=== PATIENT | female | born 1960 | race Caucasian/White ===

== ENCOUNTER 2020-02-17 18:51 | Emergency (ER) | payer OTHER, SELFPAY ==
[2020-02-17 19:00] VITALS: BP 164/77; PULSE 99; RESP 18; TEMP 36.5; O2SAT 99
--- NOTE | 2020-02-17 19:14 | ED.EAR ---
HPI - Ear Problem General Chief complaint: Ear Stated complaint: left ear poss bug bite Time Seen by Provider: 02/17/20 19:10 Source: patient and RN notes reviewed Mode of arrival: ambulatory Limitations: no limitations History of Present Illness HPI Narrative: 59-year-old female presents with concern for possible foreign body in her left ear. Reports prior to arrival a bug flew in her ear. Reports she remove the bug, was not sure if she called a bug. Reports ear discomfort and occasional ringing in the ear. MD Complaint: foreign body Related Data Home Medications Medication Instructions Recorded Confirmed No Home Medications 02/17/20 02/17/20 Allergies Allergy/AdvReac Type Severity Reaction Status Date / Time No Known Allergies Allergy Unknown Verified 02/17/20 19:07 Review of Systems Review of Systems: Narrative: CONSTITUTIONAL: Denies malaise, chills, sweats, or fever. ENT: Denies rhinorrhea, congestion, sinus pain, or sore throat. Reports ringing in the left ear, ear discomfort CARDIOVASCULAR: Denies chest pain, palpitations, or edema. All systems reviewed & are unremarkable except as noted in HPI and below PMFSH Comments At time of signature, agree with nursing past medical, surgical, social and family history. There is no relevant family history pertinent to the presenting complaint Exam Narrative: Exam Narrative: GENERAL: Well-appearing, well-nourished, and in no acute distress. HEAD: Normocephalic, atraumatic. EYES: PERRLA, conjunctivae clear, and EOMI. No nystagmus. ENT: Nares clear. Mucous membranes moist. Right TM pearly talley with sharp light reflex, left TM not visible due to excess cerumen, no foreign body visible; no tragal tenderness. NECK: Supple. CHEST: No respiratory distress. Clear to auscultation. No bony deformities, no asymmetry. Speaks in full sentences. HEART: Regular rate and rhythm. No murmur heard. Normal peripheral pulses. SKIN: Warm, dry, no rash. NEURO: Alert and oriented x3. PSYCH: Normal mood and affect Course Course Emergency Course: Patient is aware of diagnosis, understands and agrees to treatment plan. Anticipatory guidance given. Patient agrees to follow-up as directed and is aware of reasons to seek care at the emergency department. Portions of this record may have been created with voice recognition software Vital Signs Vital signs: Vital Signs Temperature 97.7 F 02/17/20 19:00 Pulse Rate 99 02/17/20 19:00 Respiratory Rate 18 02/17/20 19:00 Blood Pressure 164/77 H 02/17/20 19:00 Pulse Oximetry 99 02/17/20 19:00 Temperature 97.7 F 02/17/20 19:00 Pulse Rate 99 02/17/20 19:00 Respiratory Rate 18 02/17/20 19:00 Blood Pressure 164/77 H 02/17/20 19:00 Pulse Oximetry 99 02/17/20 19:00 Reviewed. Patient has been instructed to follow up with her primary care provider within the next week regarding her elevated blood pressure today. Procedures Ear Wax Removal Left Ear: Ear Wax Removal Date: 02/17/20 Ear Wax Removal Time: 19:16 Results: Re-examined: some cerumen remains TM Examination: TM(s) intact, normal appearance Ear Canal Exam: atraumatic Patient Tolerated Procedure: well and no complications Additional Comments: No foreign body noted, auditory canal unremarkable, atraumatic Medical Decision Making MDM Narrative Medical decision making narrative: Exam findings show no acute concerns or changes; patient is non-toxic appearing and is in no distress. Patient is appropriate for outpatient treatment and follow-up. Vital Signs Vital Signs: Vital Signs Temperature 97.7 F 02/17/20 19:00 Pulse Rate 99 02/17/20 19:00 Respiratory Rate 18 02/17/20 19:00 Blood Pressure 164/77 H 02/17/20 19:00 Pulse Oximetry 99 02/17/20 19:00 Temperature 97.7 F 02/17/20 19:00 Pulse Rate 99 02/17/20 19:00 Respiratory Rate 18 02/17/20 19:00 Blood Pressure 164/77 H 02/17/20 19:00
== END 2020-02-17 19:30 | disposition home or self-care (01) ==
PROVIDERS: Emergency Provider Nurse Practitioner; PCP Family Medicine
DX: T16.2XXA Foreign body in left ear, initial encounter (principal)
CPT/HCPCS: 99212; G0463

== ENCOUNTER 2022-03-03 08:28 | Emergency (ER) | payer OTHER, SELFPAY ==
[2022-03-03 08:32] VITALS: BP 158/72; PULSE 98; RESP 16; TEMP 36.1; O2SAT 100
--- NOTE | 2022-03-03 08:52 | ED.SKABFB ---
HPI - Skin/Abscess/Foreign Bdy General Chief complaint: Skin/Abscess/Foreign Body Stated complaint: Bee Sting Time Seen by Provider: 03/03/22 08:53 Source: patient and RN notes reviewed Mode of arrival: ambulatory Limitations: no limitations History of Present Illness HPI narrative: 61-year-old female presents to the [facility] with complaints of a bee sting that happened on Sunday, 3 days ago. Patient states that she went to open a gate and was stung between the second and third finger left hand. Swelling noted. Has taken Benadryl 1 time last night. Used baking soda at the time it occurred. Related Data Allergies Allergy/AdvReac Type Severity Reaction Status Date / Time No Known Allergies Allergy Unknown Verified 02/17/20 19:07 Review of Systems Review of Systems: All systems reviewed & are unremarkable except as noted in HPI and below Constitutional: Constitutional: Reports no additional constitutional complaints, Denies chills and Denies fever(s) Eyes: Eyes: Reports no additional eye complaints ENT: Reports system reviewed and no additional complaints, except as documented Cardiovascular: Cardiovascular: Reports no additional cardiovascular complaints Respiratory: Respiratory: Reports no additional respiratory complaints Gastrointestinal: Gastrointestinal: Reports no additional gastrointestinal complaints Musculoskeletal: Musculoskeletal: Reports no additional musculoskeletal complaints Integumentary/Breasts: Skin/Breast: Reports system reviewed and no additional complaints, except as docu Comments: Bee sting between second and third finger left hand Neurologic: Reports system reviewed and no additional complaints, except as documented Psychiatric: Psychiatric: Reports no additional psychiatric complaints Allergic/Immunologic: Allergic/Immunologic: Reports no additional allergic/immunologic complaints PMFSH Past Medical History Medical History No significant medical problems Surgical History Surgical History (Updated 03/03/22 @ 14:41 by Trena Morales APRN) No history of previous surgery Social History Social History (Updated 03/03/22 @ 14:41 by Trena Morales APRN) Gender identity (if verbalized by the patient): Female Comments At the time of my signature, I reviewed and agree with the nursing past medical, surgical, social, and family history. There is no relevant family history pertinent to the patient complaint. Exam Const: General: healthy appearing, no acute distress and alert Nutritional Appearance: well nourished Orientation/consciousness: patient oriented x3 Limitations: no limitations HENMT: Head: normal to inspection Ears: external ears normal General nose exam: Normal external nose present Face and sinus: normal facial exam Mouth: Yes Normal oral and palatal mucosa present, Yes lip normal and Yes moist mucous membranes Throat: posterior oropharynx normal and uvula midline Eyes: General: appearance normal, both eyes and all related structures Conjunctivae: conjunctivae normal Pupils: Equal, round and reactive pupils present Neck: Neck: normal visual inspection, no lymphadenopathy and no meningeal signs Chest: Chest palpation & inspection: normal inspection of the chest Resp: Effort & Inspection: normal respiratory effort and no use of accessory muscles Auscultation: clear to auscultation bilaterally, no crackles, no rales, no rhonchi and no wheezes Cardio: Rate: regular rate Rhythm: regular rhythm GI: GI Palp: Yes Soft to palpation and No Tenderness to palpation present (GI) Back/Spine/Pelvis: Cervical Spine: normal cervical lordosis Thoracic/Lumbar Spine: thoracic and lumbar spine normal to inspection Skin: General skin exam: normal color Rashes: no rashes Wounds: no wounds Other: Redness and inflammation without increased warmth between fingers 2 and 3 left hand. Area is blanchable. Capillary refill
== END 2022-03-03 09:08 | disposition home or self-care (01) ==
PROVIDERS: Emergency Provider Nurse Practitioner; PCP Family Medicine
DX: T63.441A Toxic effect of venom of bees, accidental (unintentional), initial encounter (principal)
CPT/HCPCS: 99213; G0463

== ENCOUNTER 2022-10-20 12:37 | Outpatient (CLI) | payer OTHER, SELFPAY ==
--- NOTE | ~2022-10-20 | US_ITS ---
EXAMINATION: US biopsy lymph node DATE: 10/20/2022 13:24 INDICATION: Cervical lymphadenopathy. TECHNIQUE: The procedure including the risks, benefits, and alternatives was discussed with the patie nt. Risks discussed included bleeding and infection. The patient understood the risks and agreed to p roceed. The skin overlying the left neck was prepped and draped in usual sterile fashion. Anesthetic was administered with 1% lidocaine subcutaneously. An 18 gauge core biopsy needle was then used to obtain 6 core biopsy specimens under continuous sonographic guidance. The entry site was cleaned and dressed. There were no immediate complications. COMPARISON: neck CT 08/15/22 FINDINGS: Ultrasound images demonstrate the needle in a 1.9 x 1.1 cm left supraclavicular lymph node. The previously seen mildly enlarged lymph node in right neck is now normal in size. IMPRESSION: 1. Ultrasound-guided core needle biopsy of a mildly enlarged left supraclavicular lymph node. Reviewed, dictated and finalized at location A. IMPRESSION: 1. Ultrasound-guided core needle biopsy of a mildly enlarged left supraclavicul ar lymph node.
== END 2022-10-20 12:38 | disposition home or self-care (01) ==
PROVIDERS: PCP Family Medicine; Visit Provider Otolaryngology
DX: C82.81 Other types of follicular lymphoma, lymph nodes of head, face, and neck (principal)
CPT/HCPCS: 38505; 76942; 88305; 88341; 88342

== ENCOUNTER 2022-11-08 01:56 | Day surgery (SDC) | payer OTHER, SELFPAY ==
[2022-11-07 13:05] VITALS: BMI 22.6
--- NOTE | ~2022-11-08 | BM_ITS ---
EXAMINATION: CCL bone marrow asp w bx diag DATE: 11/08/2022 09:31 INDICATION: Follicular lymphoma. TECHNIQUE: A time-out was performed to verify the patient's name, date of , and procedure to b e performed. The procedure including the risks, benefits, and alternatives was discussed with the pat ient. Risks discussed included bleeding and infection. The patient understood the risks and agreed to proceed. The skin overlying the left ilium was prepped and draped in usual sterile fashion. Anesth etic was administered with 1% lidocaine subcutaneously. Moderate sedation was achieved with 1 mg Vers ed IV and 50 mcg fentanyl IV. An 11 gauge needle was inserted into the ilium with fluoroscopic maikol nce. Bone marrow was aspirated. An 8 gauge needle was then inserted into the ilium with fluoroscopic guidance. A core bone marrow biopsy was obtained. There were no immediate complications. Fluoroscopy exposure time was 0.0 minutes. The total number of images was 22. FINDINGS: Real-time fluoroscopy demonstrates a marker overlying the left posterior superior iliac spi ne. IMPRESSION: 1. Fluoro-guided bone marrow aspiration. 2. Fluoro-guided bone marrow core biopsy. Reviewed, dictated and finalized at location A.
[2022-11-08 07:32] VITALS: BP 160/88; PULSE 109; RESP 19; TEMP 36.4; O2SAT 99; BMI 22.7
[2022-11-08 07:45] LABS: Basophils Percent Auto 0.6 % (0.2-1.2); Eosinophils Absolute Auto 0.1 K/mm3 (0-0.3); Eosinophils Percent Auto 1.5 % (0-4.4); Hematocrit 40.2 % (37.0-47.0); Hemoglobin 12.8 g/dL (12.0-15.0); Immature Granulocyte Absolute 0.05 K/mm3 (0.00-0.031); Immature Granulocyte Percent A 0.7 % (0-0.5); Lymphocytes Absolute Auto 1.38 K/mm3 (0.9-3.2); Lymphocytes Percent Auto 20.2 % (18.3-44.2); Mean Corpuscular HGB Conc 31.8 g/dl (32-36); Mean Corpuscular Hemoglobin 26.7 pg (26-34); Mean Corpuscular Volume 83.9 fl (80-100); Mean Platelet Volume 10.1 fl (7.4-10.4); Monocytes Absolute Auto 0.5 K/mm3 (0.1-0.6); Monocytes Percent Auto 7.2 % (2.6-8.5); Neutrophils Absolute Auto 4.8 K/mm3 (1.3-6.7); Neutrophils Percent Auto 69.8 % (45.5-73.1); Platelet Count Result 320 k/mm3 (150-375); Red Blood Count 4.79 M/mm3 (4.2-5.4); White Blood Count 6.8 K/mm3 (4.5-10.0)
[2022-11-08 07:57] LABS: INR 0.8; Prothrombin Time 11.9 Seconds (11.1-14.7)
--- NOTE | 2022-11-08 08:52 | WPDMODSED ---
Moderate Sedation Note-Pt Data Patient Data Diagnosis: Grade 1 follicular lymphoma. Present Complaint: Grade 1 follicular lymphoma. Procedure to be performed/Plan: Fluoro-guided bone marrow biopsy of left ilium. Allergies Allergy/AdvReac Type Severity Reaction Status Date / Time Penicillins Allergy Mild Rash Verified 11/08/22 07:30 Home Medications Medication Instructions Recorded Confirmed Type elderberry fruit 350 mg capsule 350 mg PO DAILY 10/03/22 11/08/22 History multivit with 1 tablet PO DAILY 10/03/22 11/08/22 History jrwyvool-hrbk-WZ-lutein 8 mg iron-400 mcg-300 mcg tablet (Centrum Silver Women) Sedation/Anesthesia: No previous sedation/anesthesia problems (including family history). [facility] Past Medical History Medical History No significant medical problems Surgical History Surgical History No history of previous surgery Family History Family History Father Asthma Cancer Hypertension Heart disease Mother Hypertension Sibling Hypertension Social History Social History Smoking status: Never smoker Second hand tobacco smoke exposure: No Alcohol intake: never Substance use: never Substance use type: does not use Lack of Transportation: No Lack of Food: Never True Current Housing: I Have Housing Concerned About Future Housing: No Difficulty Paying Gas/Electric Bills: No Difficulty Paying for Meds: No Currently Unemployed: No Education: High School Diploma/GED Difficulty w/ Childcare or Family Care: No Living arrangements: with family Gender identity (if verbalized by the patient): Female Spiritual care concerns: No Mod Sed Physical Exam Physical Exam Pre Procedural Exam: Normal: Appearance, Lungs, Heart Rate, Heart Rhythm and Abdomen Hours since solid foods: 12 Hours since liquid intake: 12 Mallampati Classification: class II Internal Medicine - PN: Obj Da Vital Signs Vital Signs: Vital Signs - 24 hr 11/08/22 07:32 Temperature 36.4 C Pulse Rate 109 H Respiratory Rate 19 Blood Pressure 160/88 H Pulse Oximetry 99 Oxygen Delivery Room Air Labs 05/03/23 07:28 Labs: Laboratory Results - last 24 hr 11/08/22 07:28 WBC 6.8 RBC 4.79 Hgb 12.8 Hct 40.2 MCV 83.9 MCH 26.7 MCHC 31.8 L RDW 15.0 H Plt Count 320 MPV 10.1 Immature Gran % (Auto) 0.7 H Neut % (Auto) 69.8 Lymph % (Auto) 20.2 [place] % (Auto) 7.2 Eos % (Auto) 1.5 Baso % (Auto) 0.6 Lymph # (Auto) 1.38 [place] # (Auto) 0.5 Eos # (Auto) 0.1 Baso # (Auto) 0.0 Abs Immat Gran (auto) 0.05 H Absolute Neuts (auto) 4.8 Absolute Nucleated RBC 0.0 Nucleated RBC % 0.0 PT 11.9 INR 0.8 ASA Classification/Sedation ASA Classification/Sedation ASA Class: II Emergent: No Risks: Risks, benefits and alternatives explained and patient/family accepted plan for sedation. Patient re-evaluated immediately prior to sedation.
[2022-11-08 09:30] VITALS: BP 157/75; PULSE 95; RESP 14; O2SAT 99
[2022-11-08 09:48] VITALS: BP 139/73; PULSE 92; RESP 14; O2SAT 99
[2022-11-08 10:00] VITALS: BP 134/76; PULSE 97; RESP 16; O2SAT 100
[2022-11-08 10:15] VITALS: BP 134/76; PULSE 89; RESP 16; O2SAT 100
== END 2022-11-08 10:30 | disposition home or self-care (01) ==
PROVIDERS: PCP Family Medicine; Referring Provider Internal Medicine Hematology & Oncology; Visit Provider Radiology Diagnostic Radiology
DX: C82.00 Follicular lymphoma grade I, unspecified site (principal)
CPT/HCPCS: 36415; 38222; 85025; 85610; 88184; 88185; 88305; 88311; 88313; 88341; 88342; J1642; J2250; J3010; J7040

== ENCOUNTER 2022-11-14 08:53 | Outpatient (CLI) | payer OTHER, SELFPAY ==
--- NOTE | ~2022-11-14 | PE_ITS ---
EXAMINATION: PET skull to mid thigh DATE: 11/14/2022 10:55 INDICATION: Right-sided 1 follicular lymphoma TECHNIQUE: Blood glucose level was 150 mg/dL. 11.74 mCi of 18-fluorodeoxyglucose (18-FDG) was adminis tered i.v. Low dose computed tomography (CT) images were acquired from the base of the brain to the p roximal thighs for attenuation correction and anatomic localization. Positron emission tomography (PE T) images were acquired in the same distribution beginning 72 minutes after injection. Images includi ng fused PET/CT images were reconstructed in axial, coronal, and sagittal planes. Automated exposure control technique was employed. The dose-length product was 481.20mGy-cm. COMPARISON: None FINDINGS: Head/neck: There is symmetric increased activity in the oral cavity, palatine tonsils, parotid glands, submandi bular glands, laryngeal muscles and ocular muscles without CT correlate, likely physiologic. 9 mm lef t submental lymph node with increased FDG uptake with maximal SUV of 3.5. 1.4 x 0.9 cm left supraclav icular lymph node also with mildly increased FDG uptake with maximal SUV of 3.2 and which was recentl y biopsied with pathology consistent with follicular lymphoma, low-grade . Chest: There are bilateral enlarged and FDG avid axillary lymph nodes, the largest on the right measuring 2. 3 x 1.7 cm with maximal SUV of 3.7 and measuring 2.2 x 1.2 cm on the left with maximal SUV of 4.7. No suspicious pulmonary nodules, pneumonia, pulmonary edema or pleural effusion. Calcified mediastinal lymph nodes consistent with old granulomatous disease. No abnormally enlarged or FDG avid mediastinal or hilar lymphadenopathy. Heart size is normal. No pericardial effusion. Abdomen/pelvis/proximal thighs: Physiologic renal accumulation and excretion of FDG activity in the kidneys, bladder and along portio ns of ureters. Normal degree and heterogenous pattern of increased uptake throughout the liver withou t radiologic correlate or dominant FDG avid lesion. A few scattered small hepatic and splenic calcifi cations consistent with old granulomatous disease. Spleen is normal in size with diffuse mild FDG upt amy which remains slightly less than in the liver. The gallbladder, pancreas, spleen and bilateral ad renal glands are normal. Mild to moderate uptake scattered throughout the bowels without radiologic c orrelate, also likely physiologic. Normal appendix. There are multiple additional normal sized with m ildly enlarged FDG avid bilateral inguinal lymph nodes, the largest on the right measuring 1.6 x 1.2 cm with maximal SUV of 5.5. Normal and mildly enlarged FDG avid lymph nodes extend cephalad along the bilateral external and common iliac chains there are couple additional normal sized and mildly FDG a vid inferior left periaortic lymph nodes. For reference a 2.5 x 1.1 cm right external iliac chain lym ph node demonstrates maximal SUV of 7.0. Musculoskeletal: Diffuse mild FDG activity throughout the bone marrow most prominent in the vertebral bodies and pelvi s with some of the most intense uptake at the left posterior iliac spine surrounding a subtle thin bernabe cent tract from the recent bone marrow biopsy performed 6 days prior the pathology of which remains p ending. IMPRESSION: 1. Mild to moderate increased FDG uptake associated with multiple normal-sized to mildly enlarged lym ph nodes at the left face and neck, bilateral axilla and bilateral inguinal regions extending cephala d along the bilateral iliac chains to the inferior left periaortic region consistent with biopsy-prov en follicular lymphoma. 2. Diffuse mild increased bone marrow activity including at the site of a recent bone marrow biopsy t he left posterior iliac spine. Correlate with results from the biopsy which remain pending. Reviewed, dictated and finalized at location A. Electronically signed by Claudio
[2022-11-14 09:14] LABS: Glucose Point of Care 150 mg/dl (65-105)
== END 2022-11-14 08:54 | disposition home or self-care (01) ==
PROVIDERS: PCP Family Medicine; Visit Provider Internal Medicine Hematology & Oncology
DX: C82.01 Follicular lymphoma grade I, lymph nodes of head, face, and neck (principal)
CPT/HCPCS: 78815; A9552

== ENCOUNTER 2022-12-02 12:09 | Emergency (ER) | payer OTHER, SELFPAY ==
[2022-12-02 12:18] VITALS: BP 147/67; PULSE 88; RESP 16; TEMP 36.8; O2SAT 100
--- NOTE | 2022-12-02 12:52 | ED.WOUNDLAC ---
HPI - Wound/Laceration General Chief Complaint: Skin/Abscess/Foreign Body Stated Complaint: Bee Sting/Right Arm History of Present Illness HPI narrative: 62-year-old female presents to the [facility] today complaining a wasp sting to right forearm. Patient stated she was walking into there she had yesterday when a wasp stung her when she walked into it. Since then the patient has had increased redness and swelling to her right forearm. Patient states this is a similar reaction as she has to bee stings and mosquito bites. Patient had it wrapped and using ice to help with the swelling in the soon as she removes the wrapping the swelling returns. Patient denies any fevers, body aches, chills. Patient denies any hives, swelling to throat, difficulty breathing. Related Data Home Medications Medication Instructions Recorded Confirmed elderberry fruit 350 mg capsule 350 mg PO DAILY 10/03/22 12/02/22 multivit with 1 tablet PO DAILY 10/03/22 12/02/22 liesosba-eyja-TZ-lutein 8 mg iron-400 mcg-300 mcg tablet (Centrum Silver Women) Allergies Allergy/AdvReac Type Severity Reaction Status Date / Time Penicillins Allergy Mild Rash Verified 11/08/22 07:30 Review of Systems Review of Systems: CONSTITUTIONAL: Denies fever, chills, or sweats. EYES: Denies visual changes, redness, or discharge. ENT: Denies otalgia and sore throat CARDIOVASCULAR: Denies chest pain, palpitations, or edema. RESPIRATORY: Denies cough or dyspnea. GASTROINTESTINAL: Denies abdominal pain, nausea, vomiting, or diarrhea. GENITOURINARY: Denies dysuria or hematuria. SKIN: Positive for right forearm rash and itching. MUSCULOSKELETAL: Denies back pain, joint pain, or myalgia. NEUROLOGIC: Denies headache, numbness, or weakness. Pertinent positives per HPI. [facility] Past Medical History Medical History No significant medical problems Surgical History Surgical History No history of previous surgery Family History Family History Father Asthma Cancer Hypertension Heart disease Mother Hypertension Sibling Hypertension Social History Social History Smoking status: Never smoker Second hand tobacco smoke exposure: No Alcohol intake: never Substance use: never Substance use type: does not use Lack of Transportation: No Lack of Food: Never True Current Housing: I Have Housing Concerned About Future Housing: No Difficulty Paying Gas/Electric Bills: No Difficulty Paying for Meds: No Currently Unemployed: No Education: High School Diploma/GED Difficulty w/ Childcare or Family Care: No Living arrangements: with family Gender identity (if verbalized by the patient): Female Spiritual care concerns: No Comments At the time of my signature, I reviewed and agree with the nursing past medical, surgical, social, and family history. There is no relevant family history pertinent to the patient complaint. Exam Narrative: GENERAL: This is a well-nourished, well-developed patient, in no apparent distress. HEAD: normocephalic, atraumatic. EYES: PERRL. Sclera clear/white. Vision is grossly intact. EARS: External ears normal, auditory canals clear and without drainage, TMs normal without perforation. Hearing grossly intact. NOSE: External nose normal with no obvious nasal discharge, nares without redness, no rhinorrhea. THROAT: Mucous membranes moist, posterior pharynx clear. NECK: Neck supple, non-tender without lymphadenopathy, masses or thyromegaly. CARDIOVASCULAR: Regular rate and rhythm without murmurs, gallops, or rubs. RESPIRATORY: Clear to auscultation. Breath sounds equal bilaterally. No wheezes, rales, or rhonchi. GASTROINTESTINAL: Abdomen soft, non-tender, nondistended. Bowel sounds are act
== END 2022-12-02 13:00 | disposition home or self-care (01) ==
PROVIDERS: Emergency Provider Nurse Practitioner Family; PCP Family Medicine
DX: T63.461A Toxic effect of venom of wasps, accidental (unintentional), initial encounter (principal)
CPT/HCPCS: 99213; G0463

== ENCOUNTER 2023-03-15 08:56 | Outpatient (CLI) | payer OTHER, SELFPAY ==
--- NOTE | ~2023-03-15 | CT_ITS ---
EXAMINATION: CT chest abdomen pelvis w con DATE: 03/15/2023 09:24 INDICATION: Follicular lymphoma TECHNIQUE: Transaxial computed tomographic images of the chest, abdomen, and pelvis were obtained aft er the administration of 100 cc of Omnipaque 350 intravenous contrast. The dose-length product (DLP) was 434.26 mGy-cm. Automated exposure control and iterative reconstruction technique were employed. COMPARISON: 11/14/2022 FINDINGS: CHEST CT: The heart size is normal. No pleural effusion or pneumothorax. There are no pathologically enlarged t horacic lymph nodes. A right paratracheal lymph node is upper limits of normal in size. There appears to be mild smooth interlobular septal thickening of the lungs and mild atelectasis although sensitiv ity is limited by respiratory motion. ABDOMEN/PELVIS CT: Punctate calcifications in the liver and spleen likely represent healed granulomatous disease. The li ying is diffusely low in attenuation when compared with the spleen, consistent with hepatic steatosis. The pancreas, gallbladder, and adrenal glands are normal. The kidneys are unremarkable. No pathologi ne enlarged abdominal or pelvic lymph nodes are identified. There is a focally dilated segment of small bowel in the anterior pelvis, with small bowel feces sign, which continues to the level of a sh ort segment of stricture and wall thickening of the small bowel (axial image 172, coronal image 27). IMPRESSION: 1. Interval resolution of thoracic and pelvic lymphadenopathy. 2. Focally dilated segment of small bowel in the pelvis continuing to a short segment of stricture an d wall thickening of the small bowel which could reflect benign or malignant stricture. Reviewed, dictated and finalized at location L. IMPRESSION: 1. Interval resolution of thoracic and pelvic lymphadenopathy. 2. Focally dilated segment of small bowel in the pelvis continuing to a short s egment of stricture and wall thickening of the small bowel which could reflect benign or malignant stricture.
[2023-03-15 09:20] LABS: Estimated Glomerular Filt Rate > 60
[2023-03-15 10:21] LABS: Basophils Absolute Auto 0.1 K/mm3 (0.0-0.1); Eosinophils Absolute Auto 0.2 K/mm3 (0-0.3); Hematocrit 25.4 % (37.0-47.0); Hemoglobin 7.2 g/dL (12.0-15.0); Immature Granulocyte Absolute 0.05 K/mm3 (0.00-0.031); Immature Granulocyte Percent A 0.8 % (0-0.5); Lymphocytes Absolute Auto 1.06 K/mm3 (0.9-3.2); Lymphocytes Percent Auto 17.4 % (18.3-44.2); Mean Corpuscular HGB Conc 28.3 g/dl (32-36); Mean Corpuscular Hemoglobin 22.9 pg (26-34); Mean Corpuscular Volume 80.9 fl (80-100); Mean Platelet Volume 9.6 fl (7.4-10.4); Monocytes Absolute Auto 0.4 K/mm3 (0.1-0.6); Monocytes Percent Auto 6.9 % (2.6-8.5); Neutrophils Absolute Auto 4.3 K/mm3 (1.3-6.7); Neutrophils Percent Auto 70.9 % (45.5-73.1); Platelet Count Result 536 k/mm3 (150-375); Red Blood Count 3.14 M/mm3 (4.2-5.4); Red Cell Distribution Width 17.3 % (11.5-14.5); White Blood Count 6.1 K/mm3 (4.5-10.0)
[2023-03-15 10:35] LABS: Anisocytosis 1+ (NORMAL); Hypochromasia 1+ (NORMAL); Platelet Estimate Increased (Adequate)
[2023-03-15 10:37] LABS: Ovalocytes 1+ (NORMAL)
[2023-03-15 10:40] LABS: Alanine Aminotransferase 20 U/L (6-35); Alkaline Phosphatase 88 U/L (38-126); Anion Gap 11 mmol/L (8-16); Aspartate Amino Transferase 27 U/L (14-36); Bilirubin,Total 0.3 mg/dL (0.2-1.3); Blood Urea Nitrogen 12 mg/dL (7-17); Calcium 8.6 mg/dL (8.4-10.2); Carbon Dioxide 22 mmol/L (22-30); Chloride 104 mmol/L (98-107); Estimated Glomerular Filt Rate > 60; Glucose 158 mg/dL (65-110); Lactate Dehydrogenase 214 U/L (120-246); Potassium 4.4 mmol/L (3.4-5.0); Sodium 137 mmol/L (137-145)
[2023-03-15 10:42] LABS: Schistocytes None Seen (NORMAL)
== END 2023-03-15 08:57 | disposition home or self-care (01) ==
PROVIDERS: PCP Family Medicine; Visit Provider Internal Medicine Hematology & Oncology
DX: C82.01 Follicular lymphoma grade I, lymph nodes of head, face, and neck (principal)
CPT/HCPCS: 71260; 74177; 80053; 83615; 85025; Q9967

== ENCOUNTER 2023-03-26 10:48 | Outpatient (CLI) | payer OTHER, SELFPAY ==
[2023-03-26 11:12] LABS: Basophils Absolute Auto 0.1 K/mm3 (0.0-0.1); Basophils Percent Auto 0.8 % (0.2-1.2); Eosinophils Absolute Auto 0.2 K/mm3 (0-0.3); Hematocrit 27.4 % (37.0-47.0); Hemoglobin 7.8 g/dL (12.0-15.0); Immature Granulocyte Absolute 0.03 K/mm3 (0.00-0.031); Immature Granulocyte Percent A 0.4 % (0-0.5); Lymphocytes Absolute Auto 1.44 K/mm3 (0.9-3.2); Lymphocytes Percent Auto 18.9 % (18.3-44.2); Mean Corpuscular HGB Conc 28.5 g/dl (32-36); Mean Corpuscular Hemoglobin 21.9 pg (26-34); Monocytes Absolute Auto 0.5 K/mm3 (0.1-0.6); Monocytes Percent Auto 6.8 % (2.6-8.5); Neutrophils Absolute Auto 5.4 K/mm3 (1.3-6.7); Neutrophils Percent Auto 71.1 % (45.5-73.1); Platelet Count Result 603 k/mm3 (150-375); Red Blood Count 3.56 M/mm3 (4.2-5.4); Red Cell Distribution Width 18.6 % (11.5-14.5); White Blood Count 7.6 K/mm3 (4.5-10.0)
[2023-03-26 11:19] LABS: Anisocytosis 1+ (NORMAL); Hypochromasia 1+ (NORMAL); Platelet Estimate Increased (Adequate); Schistocytes None Seen (NORMAL)
[2023-03-26 17:28] LABS: Iron 27 ug/dL (37-170)
[2023-03-26 17:30] LABS: Alanine Aminotransferase 21 U/L (6-35); Albumin Level 4.4 g/dL (3.5-5.1); Alkaline Phosphatase 93 U/L (38-126); Anion Gap 11 mmol/L (8-16); Aspartate Amino Transferase 27 U/L (14-36); Bilirubin,Total 0.3 mg/dL (0.2-1.3); Blood Urea Nitrogen 9 mg/dL (7-17); Calcium 9.2 mg/dL (8.4-10.2); Carbon Dioxide 23 mmol/L (22-30); Chloride 105 mmol/L (98-107); Estimated Glomerular Filt Rate > 60; Glucose 136 mg/dL (65-110); Lactate Dehydrogenase 219 U/L (120-246); Potassium 4.3 mmol/L (3.4-5.0); Sodium 139 mmol/L (137-145)
[2023-03-26 17:55] LABS: Percent Iron Saturation 5 % (20-50)
[2023-03-26 18:04] LABS: Ferritin 4.35 ng/mL (11.1-264)
[2023-03-26 18:36] LABS: Folic Acid 16.6 ng/mL (2.76->20)
== END 2023-03-26 10:49 | disposition home or self-care (01) ==
LOC: ANHLAB 10:50
PROVIDERS: PCP Family Medicine; Visit Provider Internal Medicine Hematology & Oncology
DX: D64.9 Anemia, unspecified (principal); C82.01 Follicular lymphoma grade I, lymph nodes of head, face, and neck
CPT/HCPCS: 36415; 80053; 82607; 82728; 82746; 83540; 83550; 83615; 85025

== ENCOUNTER 2023-06-07 08:25 | Outpatient (CLI) | payer OTHER, SELFPAY ==
--- NOTE | ~2023-06-07 | XR_ITS ---
EXAMINATION: XR small bowel follow through DATE: 06/07/2023 10:06 INDICATION: Abdominal findings on diagnostic imaging. TECHNIQUE: Oral contrast was administered, and a time course of radiographs of the abdomen was obtain ed. Fluoroscopy of the small bowel was performed. Fluoroscopy exposure time was 0.3 minutes. The tota l number of images was 12. COMPARISON: CT 03/15/2023, PET/CT 11/14/2022 FINDINGS: Again seen is dilatation and fold thickening of a loop of small bowel in the inferior abdomen. There is a mild stricture at the distal aspect of this loop. The terminal ileum is normal. Transit time fro m the stomach to proximal colon was approximately 1 hour. IMPRESSION: 1. Mild stricture in small bowel in the inferior abdomen with persistent dilatation and fold thickeni ng of a loop of small bowel proximal to the stricture. These findings are likely secondary to lymphom a. Reviewed, dictated and finalized at location A. 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 Mild stricture in small bowel in the inferior abdomen with persistent dilata tion and fold thickening of a loop of small bowel proximal to the stricture. Th ariela findings are likely secondary to lymphoma.
== END 2023-06-07 08:26 | disposition home or self-care (01) ==
PROVIDERS: PCP Family Medicine; Visit Provider Internal Medicine Gastroenterology
DX: R93.3 Abnormal findings on diagnostic imaging of other parts of digestive tract (principal); D50.9 Iron deficiency anemia, unspecified
CPT/HCPCS: 36415; 74250; 82728; 83540; 83550; 85027

== ENCOUNTER 2023-06-13 02:40 | Day surgery (SDC) | payer OTHER, SELFPAY ==
[2023-05-29 10:56] VITALS: BMI 23.1
--- NOTE | 2023-06-11 10:47 | SUR.PREOP ---
Patient called regarding upcoming procedure. Reviewed preop instructions, appointment times, and procedure prep.
--- NOTE | 2023-06-13 10:36 | P.PNAN_ITS ---
Anes - Initial Pre Proc Eval Procedure: Operation Date: 06/13/23 11:00 Proposed Procedures p Esophagogastroduodenoscopy & Colonoscopy - Caleb Hernandez MD Date/Time: 06/13/23 10:36 Surgeon: Caleb Hernandez MD Pre Op Diagnosis: Iron deficiency anemia unspecified Patient Data Age: 63 Gender: F Height: 1.68 m Weight: 65 kg Allergies Allergy/AdvReac Type Severity Reaction Status Date / Time Penicillins Allergy Mild Rash Verified 06/13/23 10:22 Home Medications Medication Instructions Recorded Confirmed Type elderberry fruit 350 mg capsule 350 mg PO DAILY 10/03/22 05/29/23 History [id number] 8 mg-folic 400 1 tablet PO DAILY 10/03/22 05/29/23 History mcg-K 50 mcg-lutein 300 mcg tablet (Centrum Silver Women) Iron (ferrous sulfate) 65 mg PO BID 04/11/23 06/13/23 History Vitamin C 500 mg PO DAILY 04/11/23 05/29/23 History Patient hx anesthesia problems: none Family hx anesthesia problems: none Results Review: All pre-operative results and documents have been reviewed as part of the pre- operative evaluation. [facility] Past Medical History Medical History (Updated 05/17/23 @ 15:34 by Caleb Hernandez MD) Abnormal CT scan, small bowel Follicular lymphoma No significant medical problems Surgical History Surgical History No history of previous surgery Family History Family History Father Asthma Cancer Hypertension Heart disease Mother Hypertension Sibling Hypertension Social History Social History (Updated 05/17/23 @ 15:22 by Amanda Hernandez CMA) Smoking status: Never smoker Second hand tobacco smoke exposure: No Alcohol intake: current Alcohol use details: social Substance use: never Substance use type: does not use Lack of Transportation: No Lack of Food: Never True Current Housing: I Have Housing Concerned About Future Housing: No Difficulty Paying Gas/Electric Bills: No Difficulty Paying for Meds: No Currently Unemployed: No Education: High School Diploma/GED Difficulty w/ Childcare or Family Care: No Living arrangements: with family Gender identity (if verbalized by the patient): Female Spiritual care concerns: No Anes - Eval Final PreProcedure Day of Procedure 06/13/23 10:36 Patient weight: obese Heart: tachycardia Airway: Mallampati scale class II ASA classification: III Anesthesia type and monitoring: general GIVS and standard monitoring Results Review: All pre-operative results and documents have been reviewed as part of the pre- operative evaluation. Informed Consent: The patient's anesthetic plan and its attendant risks and benefits were discussed with the patient/family/POA. Questions were solicited and answers provided to the satisfaction of the patient/family/POA.
[2023-06-13] MEDS: LACTATED RINGERS 1,000 ML 150 ML IV CONT (10:37)
[2023-06-13 10:38] VITALS: BP 162/91; PULSE 115; RESP 20; TEMP 36.2; O2SAT 100; BMI 22.4
--- NOTE | 2023-06-13 10:53 | WPDHPUPDATE1 ---
History and Physical Update Update Date/Time: 06/13/23 10:53 History and Physical has been reviewed, including an updated exam of the patient. There are NO changes in the patient's condition. Risks, benefits, and alternatives have been discussed and questions answered. Patient agrees to proceed with procedure.
[2023-06-13 11:21] VITALS: BP 106/69; PULSE 111; RESP 18; O2SAT 98
[2023-06-13 11:31] VITALS: BP 125/89; PULSE 118; RESP 18; O2SAT 98
[2023-06-13 11:41] VITALS: BP 129/94; PULSE 107; RESP 21; O2SAT 100
== END 2023-06-13 11:56 | disposition home or self-care (01) ==
PROVIDERS: PCP Family Medicine; Visit Provider Internal Medicine Gastroenterology
PROC: 0DJ08ZZ Inspection of Upper Intestinal Tract, Via Natural or Artificial Opening Endoscopic (ICD-10-PCS; CPT 43235; principal; 2023-06-13 11:00)
DX: K64.8 Other hemorrhoids (principal); K21.00 Gastro-esophageal reflux disease with esophagitis, without bleeding; K29.80 Duodenitis without bleeding; K31.89 Other diseases of stomach and duodenum; D50.9 Iron deficiency anemia, unspecified; C82.05 Follicular lymphoma grade I, 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
CPT/HCPCS: 45378; 43239; 88305; J2704; J7120

== ENCOUNTER 2024-05-24 09:47 | Emergency (ER) | payer OTHER, SELFPAY ==
[2024-05-24 09:57] VITALS: BP 163/65; PULSE 91; RESP 16; TEMP 36.8; O2SAT 100
--- NOTE | 2024-05-24 10:38 | ED.GENADULT ---
HPI - General Adult General Chief complaint: Skin/Abscess/Foreign Body Stated complaint: reaction to bug bite on neck Source: patient Mode of arrival: ambulatory Limitations: no limitations History of Present Illness HPI narrative: Patient presents for evaluation of redness and itching to the anterior aspect of the neck. Symptom onset 2 days ago after she was bit by an insect. She has applied some Benadryl cream. She states that the area feels ?tight?. No fever, chills, difficulty breathing or swallowing, drainage from the affected area. Related Data Home Medications Medication Instructions Recorded Confirmed elderberry fruit 350 mg capsule 350 mg PO DAILY 10/03/22 05/29/23 [id number]-yryd-ccgg 8 mg-folic 400 1 tablet PO DAILY 10/03/22 05/29/23 mcg-K 50 mcg-lutein 300 mcg tablet (Centrum Silver Women) Iron (ferrous sulfate) 65 mg PO BID 04/11/23 06/13/23 Vitamin C 500 mg PO DAILY 04/11/23 05/29/23 Allergies Allergy/AdvReac Type Severity Reaction Status Date / Time Penicillins Allergy Mild Rash Verified 06/13/23 10:22 Review of Systems Review of Systems: CONSTITUTIONAL: Denies fever, chills, or sweats. EYES: Denies visual changes, redness, or discharge. ENT: Denies rhinorrhea, congestion, sore throat, or otalgia. CARDIOVASCULAR: Denies chest pain, palpitations, or edema. RESPIRATORY: Denies cough or dyspnea. GASTROINTESTINAL: Denies abdominal pain, nausea, vomiting, or diarrhea. GENITOURINARY: Denies dysuria or hematuria. SKIN: Reports redness and itching to the anterior aspect of the neck. MUSCULOSKELETAL: Denies back pain, joint pain, or myalgia. NEUROLOGIC: Denies headache, numbness, dizziness, or weakness. PSYCHIATRIC: Denies anxiety or depression. [facility] Past Medical History Medical History Abnormal CT scan, small bowel Follicular lymphoma No significant medical problems Surgical History Surgical History No history of previous surgery Family History Family History Father Asthma Cancer Hypertension Heart disease Mother Hypertension Sibling Hypertension Social History Social History Smoking status: Never smoker Second hand tobacco smoke exposure: No Alcohol intake: current Alcohol use details: social Substance use: never Substance use type: does not use Lack of Transportation: No Lack of Food: Never True Current Housing: I Have Housing Concerned About Future Housing: No Difficulty Paying Gas/Electric Bills: No Difficulty Paying for Meds: No Currently Unemployed: No Education: High School Diploma/GED Difficulty w/ Childcare or Family Care: No Living arrangements: with family Gender identity (if verbalized by the patient): Female Spiritual care concerns: No Exam Narrative: GENERAL: Well-appearing, well-nourished, and in no acute distress. HEAD: Normocephalic, atraumatic. EYES: PERRLA and EOMI. ENT: Nares clear, no rhinorrhea or epistaxis. Mucous membranes moist. Oropharynx without tonsillar hypertrophy exudate or other lesions. Bilateral TMs pearly talley nonbulging NECK: Supple. No adenopathy or masses. No carotid bruits or JVD CHEST: Clear to auscultation. No respiratory distress. No wheezes rales or rhonchi HEART: Regular rate and rhythm. No murmur heard. Normal peripheral pulses. ABDOMEN: Soft, nontender, nondistended, normal active bowel sounds. EXTREMITIES: Normal range of motion. No edema. SKIN: There is a 5 x 6 cm area of erythema in an irregular formation to the anterior aspect of the neck. NEURO: No focal deficits. Alert and oriented x3. PSYCH: Normal mood and affect. Course Course Emergency Course: This is a 64-year-old female who presented for evaluation of redness and itching to the anterior aspect of the neck after experiencing an insect bite 2 days ago. Benadryl has not been working topically. Will switch to oral. Add Medrol Dosepak. Will cover for cellulitis with cephalexin. Follow-up with primary provider. Go to the ER for worsening symptoms. Patient is in agreement with plan of care. Level of Care: Express Care Visit Vital Signs Vital signs: Vital Signs Temperature 36.8 C 05/24/24 09:57 Pulse Rate 91 05/24/24 09:57 Respiratory Rate 16 05/24/24 09:57 Blood Pressure 163/65 H 05/24/24 09:57 Pulse Oximetry 100 05/24/24 09:57 Oxygen Delivery Room Air 05/24/24 09:57 Temperature 36.8 C 05/24/24 09:57 Pulse Rate 91 05/24/24 09:57 Respiratory Rate 16 05/24/24 09:57 Blood Pressure 163/65 H 05/24/24 09:57 Pulse Oximetry 100 05/24/24 09:57 Oxygen Delivery Room Air 05/24/24 09:57 Medical Decision Making Vital Signs Vital Signs: Vital Signs Temperature 36.8 C 05/24/24 09:57 Pulse Rate 91 05/24/24 09:57 Respiratory Rate 16 05/24/24 09:57 Blood Pressure 163/65 H 05/24/24 09:57 Pulse Oximetry 100 05/24/24 09:57 Oxygen Delivery Room Air 05/24/24 09:57 Temperature 36.8 C 05/24/24 09:57 Pulse Rate 91 05/24/24 09:57 Respiratory Rate 16 05/24/24 09:57 Blood Pressure 163/65 H 05/24/24 09:57 Pulse Oximetry 100 05/24/24 09:57 Oxygen Delivery Room Air 05/24/24 09:57 Discharge Plan Discharge Clinical Impression: Insect bite Patient Disposition: Home, Self-Care Condition: Stable Instructions: Antibiotic Form, Insect Bite or Sting (ED) Patient Language: Syriac Prescriptions: New cephalexin 500 mg capsule 500 mg PO Q6H Qty: 40 0RF methylprednisolone [Medrol (Gil)] 4 mg tablets,dose pack See Rx Instructions .ROUTE .COMPLEX Qty: 21 0RF Rx Instructions: for 6 days No Action Iron (ferrous sulfate) 65 mg 65 mg PO BID Vitamin C 500 mg 500 mg PO DAILY elderberry fruit 350 mg capsule 350 mg PO DAILY Centrum Silver Women 8 mg iron-400 mcg-300 mcg tablet 1 tablet PO DAILY omeprazole 20 mg capsule,delayed release(DR/EC) 20 mg PO .daily Qty: 30 11RF Follow-up/Referrals: Harms,Bo Mcclain M.D. [Primary Care Provider] - Time of Disposition: 10:04
== END 2024-05-24 10:10 | disposition home or self-care (01) ==
PROVIDERS: Emergency Provider Nurse Practitioner; PCP Family Medicine
DX: S10.96XA Insect bite of unspecified part of neck, initial encounter (principal); W57.XXXA Bitten or stung by nonvenomous insect and other nonvenomous arthropods, initial encounter; Z85.72 Personal history of non-Hodgkin lymphomas
CPT/HCPCS: 99213; G0463

== ENCOUNTER 2024-08-30 10:00 | Emergency (ER) | payer OTHER, SELFPAY ==
--- OUTSIDE RECORDS SUMMARY | 2024-08-30 10:05 | XMS_ITS | Encounter Summary ---
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 Operator Name Role Phone Unavailable Primary Care Provider Unavailabl e Encounter Details Date Type Department Care Team (Late st Contact Info) Description 11/08/2022 Lab Requisition [facility] Care Pathology Lab [address] [place] [address] Earl Ingram MD [address] [address] Follicular lymphoma grade i, lymph nodes of multiple sites (HCC) Social History Tobacco Use Types Packs/Day Years Used Date Smoking Tobacco: Never Assessed Sex and Gender Information Value Date Recorded Sex Assigned at Not on file Gender Identity Not on file Sexual Orientation Not on file documented as of this encounter Plan of Treatment Not on file documented as of this encounter Procedures Procedure Name Priority Date/Time Associated Diagnosis Comments FLOW CYTOMETRY BONE MARROW Routine 11/08/2022 9:20 AM CDT Follicular lymphoma grade i, lymph nodes of multiple sites (CMS/HCC) documented in this encounter Results * FLOW CYTOMETRY BONE MARROW (11/08/2022 9:20 AM CDT) Case Report Flow Cytometry Case: [id number] Authorizing Provider: Earl Ingram MD Collected: 11/08/2022 09:20 AM Ordering Location: [facility] Care Pathology Lab Received: 11/08/2022 12:58 PM Pathologist: Naila Mandel MD Specimen: Bone Marrow 11/08/2022 3:57 PM CDT [facility] Final Diagnosis Bone marrow, flow cytometry: - No clonal B-cell or increased blast population identified 11/08/2022 3:57 PM [facility] Flow Cytometry Interpretation The bone marrow specimen has a viability of 92%. The lymphocyte, dim CD45, monocyte, and granulocyte browne are normal in relative proportion. Within the lymphocyte gate, there is no monotypic B-cell population identified (kappa: lambda ratio = 2:1). There is no expanded T-cell population seen. By CD34, <3% of all events analyzed are blasts. A subset of dim CD45 events represent hematogones. A bone marrow aspirate smear prepared from the flow cytometry specimen is reviewed for quality control expert purposes. 11/08/2022 3:57 PM [facility] Flow Cytometry Results Differential Result Comment Flow Cell Count /uL 49,000 Total Viability % 92.0 Lymphocytes % 10 Dim CD45 Region % 8 Monocytes % 6 Granulocytes % 75 11/08/2022 3:57 PM [facility] Reason for test Follicular lymphoma grade 1, lymph nodes of multiple sites (CMS/HCC) 11/08/2022 3:57 PM [facility] Client Specimen ID # [id number] 11/08/2022 3:57 PM [facility] Number of markers 10 were performed. A-1 Flow CD3 A-3 Flow CD10 A-5 Flow CD20 A-6 Flow CD23 A-2 Flow CD5 A-4 Flow CD19 A-7 Flow CD34 A-8 Flow CD45 A-9 [place]+CD19+ A-10 Lambda+CD19+ 11/08/2022 3:57 PM [facility] Disclaimer Test performed at [facility], [address] [place] [address], [id number]. *The established laboratory minimum viability is 70%. Values below the minimum may result in the failure to find an abnormal population of cells. This test was developed and its performance characteristics determined by the Flow Cytometry Laboratory. It has not been cleared by the [place] Food and Drug Administration (FDA). The FDA has determined that such clearance or approval is not necessary. This test is used for clinical purposes. It should not be regarded as investigational or for research. This laboratory is regulated under the Clinical Laboratory Improvement Amendments of 1998 (CLIA) as a qualified to perform high complexity clinical testing. 11/08/2022 3:57 PM CDT [facility] Embedded Images 3:57 PM CDT [facility] Pathology/Cytolo gy BONE MARROW SPECIMEN / Unknown 11/08/2022 9:20 AM CDT 11/08/2022 12:58 PM CDT Earl Ingram MD LAB - PATHOLOGY/CYTO LOGY ORDERABLES Performing Organization Address City/State/[facility] Co de Phone Number [facility] [address] [phone] documented in this encounter Visit Diagnoses Diagnosis Follicular lymphoma grade i, lymph nodes of multiple sites (HCC) documented in this encounter
--- OUTSIDE RECORDS SUMMARY | 2024-08-30 10:05 | XMS_ITS | Encounter Summary ---
Author Organization [facility] Health Address [address] [place] [address] Care Team Providers Care Pack Train Driver Name Role Phone Unavailable Primary Care Provider Unavailabl e Encounter Details Date Type Department Care Team (Late st Contact Info) Description 10/25/2022 Lab Requisition [facility] Care Pathology Lab [address] [place] [address] Earl Ingram MD [address] [address] Illness, unspecified Social History Tobacco Use Types Packs/Day Years Used Date Smoking Tobacco: Never Assessed Sex and Gender Information Value Date Recorded Sex Assigned at Not on file Gender Identity Not on file Sexual Orientation Not on file documented as of this encounter Plan of Treatment Not on file documented as of this encounter Procedures Procedure Name Priority Date/Time Associated Diagnosis Comments PATHOLOGY TISSUE Routine 10/20/2022 1:10 PM CDT Illness, unspecified documented in this encounter Results * PATHOLOGY TISSUE (10/20/2022 1:10 PM CDT) Case Report Surgical Pathology Report Case: [id number] Authorizing Provider: Earl Ingram MD Collected: 10/20/2022 01:10 PM Ordering Location: [facility] Care Pathology Lab Received: 10/25/2022 11:17 AM Pathologist: Naila Mandel MD Specimen: Lymph Node Biopsy, Left neck lymph node 10/26/2022 9:53 AM CDT [facility] Final Diagnosis Left neck lymph node, biopsy core: - Follicular lymphoma, low-grade 10/26/2022 9:53 AM CDT [facility] Microscopic Description and Comment Histologic sections show small fragments of lymphoid tissue with closely packed follicles, morphologically consistent with follicular lymphoma. Immunohistochemistry performed at [facility] Pathology show the neoplastic follicles to be BCL-6 and BCL-2 positive. The nodularity is also highlighted by CD21, and CD3 highlights background T-cells. Flow cytometry reportedly showed a CD10+ monotypic CD19+/CD20+ B-cell population with kappa light chain restriction. Overall findings are those of low-grade follicular lymphoma. 10/26/2022 9:53 AM [facility] Clinical History 10/26/2022 9:53 AM [facility] Materials Received Received are four slide(s), and one block (A1) labeled [id number] along with a copy of the outside pathology report. The materials originate from [facility]. All original materials are returned to the referring institution, along with a copy of our final report. 10/26/2022 9:53 AM [facility] Disclaimer The performance characteristics of all immunohistochemical and indirect immunofluorescence stains (if any) cited in this report were determined by the Histopathology Laboratory of [facility]. Some of these tests were developed by our own laboratory and have not been cleared or approved by the [place] Food and Drug Administration. The FDA does not require this test to go through premarket FDA review. These tests are used for clinical purposes. They should not be regarded as investigational or for research. This laboratory is certified under the Clinical Laboratory Improvement Amendments (CLIA) as qualified to perform high complexity clinical laboratory testing. This case has been personally reviewed and interpreted by the attending (teaching) pathologist. 10/26/2022 9:53 AM T [facility] Embedded Images 10/26/2022 9:53 AM T [facility] Pathology/Cytolo gy BIOPSY OF LYMPH NODE / Unknown 10/20/2022 1:10 PM CDT 10/25/2022 11:17 AM CDT Earl Ingram MD LAB - PATHOLOGY/CYTO LOGY ORDERABLES [facility] [address] [place] [address], [facility] [phone] documented in this encounter Visit Diagnoses Diagnosis Illness, unspecified documented in this encounter
--- OUTSIDE RECORDS SUMMARY | 2024-08-30 10:05 | XMS_ITS | Data Portability ---
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 requests yearly pap despite my assurances she doesnt need one but every three. watching a 1 year old for a cousin. keeps her busy Not available 09/27/2021 11:50:41 10/05/2022 10/05/2022 supervisor mails exam benign will keep us posted on neck biopsy Not available 10/05/2022 16:32:05 11/05/2023 11/05/2023 supervisor mails exam benign no supervisor mails issues wished her good luck with lymphoma Not available 11/05/2023 11:35:48 Plan of Treatment Reminders Order Date Submit Date Provider Last Modified By Organization Details Last Modified Time Details Appointments None recorded. Lab cytology report, thin prep, smear or scraping, cervical or vaginal 2022 023 [facility] LABNARENDR[facility], [address], [address], [place], [address], 07:17:30 cytology report, thin prep, smear or scraping, cervical or vaginal 2021 022 ALMAS SINGHCOKYUNG, [address], [address], [place], [address], 2 16:13:19 cytology report, thin prep, smear or scraping, cervical or vaginal 2020 021 ARTESIA WELLS [facility], [address], [address], [place], [address], 1 16:12:27 Referral None recorded. Procedures None recorded. Surgeries None recorded. Imaging MAMMO, screening , digital, bilateral 2023 024 [facility] ([facility] Scheduling, [address] [facility] [place], [address], 4 10:54:28 MAMMO, screening , digital, bilateral 2022 023 [facility] ([facility]) Scheduling, [address] [facility] [place], [address], 3 14:09:35 MAMMO, screening , digital, bilateral 2021 022 [email or web address] [facility] ([facility]) Scheduling, [address] [facility] [place], [address], 2 10:43:12 MAMMO, screening , digital, bilateral 2020 021 [facility] ([facility]) Scheduling, [address] [place], [address], 1 16:38:46 Medication Orders None recorded. Patient TargetsNo targets recorded. Patient Instructions Encounter Date Encounter Id Patient Instructions Last Modified By Organization Details Last Modified Time 09/14/2020 [id number] learning about breast cancer screening Not available 09/14/2020 11:05:35 09/27/2021 [id number] learning about breast cancer screening Not available 09/27/2021 11:43:57 10/05/2022 [id number] learning about breast cancer screening Not available 10/05/2022 16:24:00 11/05/2023 [id number] learning about breast cancer screening Not available 11/05/2023 11:27:58 Reason for Referral None Reported. Results Created Date Observation Date Name Description Value Unit Range Abnormal Flag Note LastModifiedBy Organization Detail LastModifiedTime 09/15/19 21 09/16/2020 cytol ogy repor t, thin prep, smear or scrap ing, cervi gio or vagin al diagnosis: Javi chavis NEGAT SARAH FOR INTRA EPITH ELIAL LESIO N OR KHURRAM MCKEON . CELLU LAR GREGORIO ES ASSOC IATED WITH ATROP HY ARE PRESE NT. THIS SPECI MEN WAS RESCR EENED PART OF OUR QUALI TY CONTR OL PROGR AM. Not Available [facility] ([facility]) [address] [place], [address], 09/16/2020 16:12:27 09/15/19 21 09/16/2020 cytol ogy repor t, thin prep, smear or scrap ing, cervi gio or vagin al specimen adequacy: Javi chavis Satis facto ry for evalu ation . Endoc ervic al compo nent may not be disti nguis hed in cases of atrop hy. Not Available [facility] ([facility]) [address] [facility], [place], [address], 09/16/2020 16:12:27 09/15/19 21 09/16/2020 cytol ogy repor t, thin prep, smear or scrap ing, cervi gio or vagin al clinician provided ICD10: Javi chavis Z01.4 19 Not Available [facility] ([facility]) [address] [place], [address], 09/16/2020 16:12:27 09/15/19 21 09/16/2020 cytol ogy repor t, thin prep, smear or scrap ing, cervi gio or vagin al performed by: Javi Denny rs, Cytot dalia chavis (ASCP ) Not Available [facility] ([facility]) [address] [facility], [place], [address], 09/16/2020 16:12:27 09/15/19 21 09/16/2020 cytol ogy repor t, thin prep, smear or scrap ing, cervi gio or vagin al QC reviewed by: Javi Radford , Nayely visor y Cytot echno logis t (ASCP ) Not Available [facility] ([facility]) [address] [place], [address], 09/16/2020 16:12:27 09/15/19 21 09/16/2020 cytol ogy repor t, thin prep, smear or scrap ing, cervi gio or vagin al . . Not Available [facility] ([facility]) [address] [facility], [place], [address], 09/16/2020 16:12:27 09/15/19 21 09/16/2020 cytol ogy repor t, thin prep, smear or scrap ing, cervi gio or vagin al note: Javi chavis The Pap smear is a scree dale test desig joyce to aid in the detec tion of shannon ligna nt and malig nant condi tions of the uteri ne cervi x. It is not a diagn ostic proce dure and shoul d not be used as the sole means of detec ting cervi gio cance r. Both false -posi tive and false -nega tive repor ts do occur . Not Available [facility] ([facility]) [address] [facility], [place], [address], 09/16/2020 16:12:27 09/15/19 21 09/16/2020 cytol ogy repor t, thin prep, smear or scrap ing, cervi gio or vagin al test methodology: Javi chavis This liqui d based ThinP rep(R ) pap test was scree joyce with the use of an image guide d systjeannie m. Not Available [facility] ([facility]) [address] [place], [address], 09/16/2020 16:12:27 09/15/19 21 09/16/2020 cytol ogy repor t, thin prep, smear or scrap ing, cervi gio or vagin al . Javi t The HPV DNA refle x crite glenda were not met with this speci men resul t there fore, no HPV testi ng was perfo rmed. Not Available [facility] ([facility]) [address] [place], [address], 09/16/2020 16:12:27 09/28/19 22 09/30/2021 IGP, RFX APTIM A HPV ASCU diagnosis: Javi HEAD SARAH FOR INTRA EPITH ELIAL LESIO N OR KHURRAM MCKEON . Not Available [facility] ([facility]) [address] [place], [address], 09/30/2021 16:13:19 09/28/19 22 09/30/2021 IGP, RFX APTIM A HPV ASCU specimen adequacy: Javi chavis Satis facto ry for evalu ation . Endoc ervic al compo nent may not be disti nguis hed in cases of atrop hy. Not Available [facility] ([facility]) [address] [facility], [place], [address], 09/30/2021 16:13:19 09/28/19 22 09/30/2021 IGP, RFX APTIM A HPV ASCU clinician provided ICD10: Javi chavis Z01.4 19 Not Available [facility] ([facility]) [address] [place], [address], 09/30/2021 16:13:19 09/28/19 22 09/30/2021 IGP, RFX APTIM A HPV ASCU performed by: Javi clay Cytot dalia chavis (ASCP ) Not Available [facility] ([facility]) [address] [place], [address], 09/30/2021 16:13:19 09/28/19 22 09/30/2021 IGP, RFX APTIM A HPV ASCU . . Not Available [facility] ([facility]) [address] [place], [address], 09/30/2021 16:13:19 09/28/19 22 09/30/2021 IGP, RFX APTIM A HPV ASCU note: Commen t The Pap smear is a scree dale test desig joyce to aid in the detec tion of shannon ligna nt and malig nant condi tions of the uteri ne cervi x. It is not a diagn ostic proce dure and shoul d not be used as the sole means of detec ting cervi gio cance r. Both false -posi tive and false -nega tive repor ts do occur . Not Available [facility] ([facility]) [address] [place], [address], 09/30/2021 16:13:19 09/28/19 22 09/30/2021 IGP, RFX APTIM A HPV ASCU test methodology: Commen t This liqui d based ThinP rep(R ) pap test was scree joyce with the use of an image guide declan systjeannie conte. Not Available [facility] ([facility]) [address] [place], [address], 09/30/2021 16:13:19 09/28/19 22 09/30/2021 IGP, RFX APTIM A HPV ASCU . Commen t The HPV DNA refle x crite glenda were not met with this speci men resul t there fore, no HPV testi ng was perfo rmed. Not Available [facility] ([facility]) [address] [place], [address], 09/30/2021 16:13:19 10/06/19 23 10/11/2022 IGP, RFX APTIM A HPV ASCU diagnosis: Commen t NEGAT SARAH FOR INTRA EPITH ELIAL LESIO N OR MALIG MIKE . CELLU LAR JG ES ASSOC IATED WITH ATROP HY ARE PRESE NT. Not Available [facility] ([facility]) [address] [place], [address], 10/12/2022 07:17:30 10/06/19 23 10/11/2022 IGP, RFX APTIM A HPV ASCU specimen adequacy: Javi chavis Satis facto ry for evalu ation . Endoc ervic al compo nent may not be disti nguis hed in cases of atrop hy. Not Available [facility] ([facility]) [address] [place], [address], 10/12/2022 07:17:30 10/06/19 23 10/11/2022 IGP, RFX APTIM A HPV ASCU clinician provided ICD10: Javi chavis Z01.4 19 Not Available [facility] ([facility]) [address] [place], [address], 10/12/2022 07:17:30 10/06/19 23 10/11/2022 IGP, RFX APTIM A HPV ASCU performed by: Ruben Wong (ASCP ) Not Available [facility] ([facility]) [address] [place], [address], 10/12/2022 07:17:30 10/06/19 23 10/11/2022 IGP, RFX APTIM A HPV ASCU . . Not Available [facility] ([facility]) [address] [place], [address], 10/12/2022 07:17:30 10/06/19 23 10/11/2022 IGP, RFX APTIM A HPV ASCU note: Javi chavis The Pap smear is a scree dale test desig joyce to aid in the detec tion of shannon ligna nt and malig nant condi tions of the uteri ne cervi x. It is not a diagn ostic proce dure and shoul d not be used as the sole means of detec ting cervi gio cance r. Both false -posi tive and false -nega tive repor ts do occur . Not Available [facility] ([facility]) [address] [facility], [place], [address], 10/12/2022 07:17:30 10/06/19 23 10/11/2022 IGP, RFX APTIM A HPV ASCU test methodology: Commen t This liqui d based ThinP rep(R ) pap test was scree joyce with the use of an image guide declan conte. Not Available [facility] ([facility]) [address] [place], [address], 10/12/2022 07:17:30 10/06/19 23 10/11/2022 IGP, RFX APTIM A HPV ASCU . Commen t The HPV DNA refle x crite glenda were not met with this speci men resul t there fore, no HPV testi ng was perfo rmed. Not Available [facility] ([facility]) [address] [place], [address], 10/12/2022 07:17:30 11/05/19 24 11/08/2023 IGP, RFX APTIM A HPV ASCU diagnosis: Commen t NEGAT SARAH FOR INTRA EPITH ELIAL LESIO N OR KHURRAM MCKEON . CELLU LAR GREGORIO ES ASSOC IATED WITH ATROP HY ARE PRESE NT. Not Available [facility] ([facility]) [address] [place], [address], 11/08/2023 11:14:48 11/05/19 24 11/08/2023 IGP, RFX APTIM A HPV ASCU specimen adequacy: Commen t Satis facto ry for evalu ation . Endoc ervic al compo nent may not be disti nguis hed in cases of atrop hy. Not Available [facility] ([facility]) [address] [place], [address], 11/08/2023 11:14:48 11/05/19 24 11/08/2023 IGP, RFX APTIM A HPV ASCU clinician provided ICD10: Javi chavis Z01.4 19 Not Available [facility] ([facility]) [address] [place], [address], 11/08/2023 11:14:48 11/05/19 24 11/08/2023 IGP, RFX APTIM A HPV ASCU performed by: Javi bacon, Cytot dalia chavis (ASCP ) Not Available [facility] ([facility]) [address] [place], [address], 11/08/2023 11:14:48 11/05/19 24 11/08/2023 IGP, RFX APTIM A HPV ASCU . . Not Available [facility] ([facility]) [address] [place], [address], 11/08/2023 11:14:48 11/05/19 24 11/08/2023 IGP, RFX APTIM A HPV ASCU note: Javi chavis The Pap smear is a scree dale test deskeyona ashleyd to aid in the detec tion of shannon ligna nt and malig nant condi tions of the uteri ne cervi x. It is not a diagn ostic proce dure and shoul d not be used as the sole means of detec ting cervi gio cance r. Both false -posi tive and false -nega tive repor ts do occur . Not Available [facility] ([facility]) [address] [place], [address], 11/08/2023 11:14:48 11/05/19 24 11/08/2023 IGP, RFX APTIM A HPV ASCU test methodology: Javi chavis This liqui d based ThinP rep(R ) pap test was scree joyce with the use of an image guide declan syste m. Not Available [facility] ([facility]) [address] [facility], [place], [address], 11/08/2023 11:14:48 11/05/19 24 11/08/2023 IGP, RFX APTIM A HPV ASCU . Commen t The HPV DNA refle x crite glenda were not met with this speci men resul t there fore, no HPV testi ng was perfo rmed. Not Available [facility] ([facility]) [address] [facility], [place], [address], 11/08/2023 11:14:48 01/18/20 21 01/15/2021 MAMMO , scree dale, digit al, bilat eral No observ ation record ed. [facility] ([facility]) Scheduling [address] [place], [address], 01/17/2021 16:38:46 01/31/20 22 01/28/2022 MAMMO , scree dale, digit al, bilat eral No observ ation record ed. [facility] ([facility]) Scheduling [address] [place], [address], 01/30/2022 10:50:54 03/06/20 23 03/05/2023 MAMMO , scree dale, digit al, bilat eral No observ ation record ed. [facility] ([facility]) Scheduling [address] [place], [address], 03/06/2023 14:09:35 03/03/20 24 02/27/2024 MAMMO , scree dale, digit al, bilat eral No observ ation record ed. cdarrrn [facility] ([facility]) Scheduling [address] [place], [address], 03/03/2024 16:16:37 Result Notes None recorded. 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 Procedures Surgical History Date Name Laterality Status Provider Name and Address Organization Details Recorded Time 4 Most Recent Mammogram completed Yasmeen Blanchard RN [place] [facility] 03/03/2024 16:16:48 3 Date of Last Pap Smear completed YING Valentin [place] - [facility] 10/12/2022 09:03:02 Imaging Results Imaging Date Name Status LastModified by Organiz ation Details LastModified Time 01/15/2021 MAMMO, screening, digital, bilateral completed [facility] ([facility]) Scheduling [address] [place], [address], 01/17/2021 16:38:46 01/28/2022 MAMMO, screening, digital, bilateral completed [facility] ([facility]) Scheduling [address] [place], [address], 01/30/2022 10:50:54 03/05/2023 MAMMO, screening, digital, bilateral completed [facility] ([facility]) Scheduling [address] [place], [address], 03/06/2023 14:09:35 02/27/2024 MAMMO, screening, digital, bilateral completed [facility] ([facility]) Scheduling [address] [place], [address], 03/03/2024 16:16:37 Procedure Notes None recorded. Medical Equipment None Reported. Allergies No known drug allergies Medications Name Sig Start Date Stop Date Status Note LastModified by Organization Details LastModified Time prednisone 10 mg tablet 09/14 completed Not Available Not Available Not Available doxycycline hyclate 100 mg capsule TAKE 1 CAPSULE BY MOUTH TWICE DAILY FOR 10 DAYS active Not Available Not Available No t Available triamcinolo ne acetonide 0.5 % topical cream APPLY CREAM TOPICALLY TWICE DAILY FOR 7 DAYS active Not Available Not Available No t Available prednisone 20 mg tablet TAKE 1 TABLET BY MOUTH ONCE DAILY 10/05 completed Not Available Not Available Not Available triamcinolo ne acetonide 0.1 % topical cream 09/27 completed Not Available Not Available Not Available terbinafine HCl 250 mg tablet 09/27 completed Not Available Not Available Not Available cephalexin 500 mg capsule 09/14 completed Not Available Not Available Not Available triamcinolo ne acetonide 0.1 % topical ointment 09/27 completed Not Available Not Available Not Available omeprazole 20 mg capsule,del ayed release TAKE 1 CAPSULE BY MOUTH ONCE DAILY active Not Available Not Available No t Available methylpredn isolone 4 mg tablets in a dose pack 09/27 completed Not Available Not Available Not Available hydroxyzine HCl 10 mg tablet 09/27 completed Not Available Not Available Not Available hydroxyzine pamoate 25 mg capsule 09/27 completed Not Available Not Available Not Available Sprintec (28) 0.25 mg-35 mcg tablet TAKE ONE TABLET BY MOUTH ONCE DAILY 09/14 completed Not Available Not Available Not Available Vitals Date Recorded Body weight Systolic blood pressure Diastolic blood pressure Provider Name and Address Organization Details Last Updated DateTime 09/14/2020 85389.14 g 168 mm[Hg] 86 mm[Hg] YING Valentin - [facility] 09/14/2020 11:01:13 Date Recorded Body weight Systolic blood pressure Diastolic blood pressure Provider Name and Address Organization Details Last Updated DateTime 09/27/2021 70604.55 g 130 mm[Hg] 78 mm[Hg] YING Valentin - [facility] 09/27/2021 11:35:45 Date Recorded Body height Body mass index (BMI) Body weight Systolic blood pressure Diastolic blood pressure Provider Name and Address Organization Details Last Updated DateTime 10/05/2022 167.64 cm 24.2 kg/m2 58648 g 177 mm[Hg] 98 mm[Hg] YING Valentin [place] - [facility] 3 16:20:25 Date Recorded Body height Body mass index (BMI) Body weight Systolic blood pressure Diastolic blood pressure Provider Name and Address Organization Details Last Updated DateTime 11/05/2023 167.64 cm 23.1 kg/m2 13542.85 g 165 mm[Hg] 77 mm[Hg] YING Valentin [place] - [facility] 4 11:23:00 Social History Question Answer Notes LastModified by Organizat ion Details LastModified Time Tobacco Smoking Status Never Smoker YING Valentin [facility], [place] - [facility] 09/14/2020 11:00:31 What Is Your Level Of Alcohol Consumption? Occasional Information not available 09/14/2020 In The 14 Days Before Symptom Onset, Have You Had Close Contact With A Laboratory-confirm ed COVID-19 While That Case Was Ill? No Information n ot available 09/27/2021 In The 14 Days Before Symptom Onset, Have You Had Close Contact With A Person Who Is Under Investigation For COVID-19 While That Person Was Ill? No Information not available 09/27/2021 Have You Been To An Area Known To Be High Risk For COVID-19? No Information not available 09/27/2021 What Was The Date Of Your Most Recent Tobacco Screening? 11/05/2023 Information not available 11/05/2023 How Many Children Do You Have? 0 Information not available 08/28/2014 What Is Your Relationship Status? Single Information not available 08/28/2014 Do You Use Any Illicit Or Recreational Drugs? No Information not available 09/14/2020 Has Tobacco Cessation Counseling Been Provided? No Information not available 09/14/2020 Do You Or Have You Ever Used Any Other Forms Of Tobacco Or Nicotine? No Information not available 09/14/2020 Sex: Female Functional Status None recorded. Mental Status None recorded. Family History Nothing Reported. Medical History Condition Response Other N High Blood Pressure N Breast Cancer N Thyroid Problems N Kidney or Bladder Problems N Lung Disease N Depression N Blood Clots N GI Problems N Acne N Breast Problem N Eating Disorder N Anemia N Anesthesia Complications N Headaches/Migraines N Ovarian Cancer N Diabetes N Anxiety Disorder N Muscle, Joint, or Bone Problems N Blood Transfusions N Seizures/Epilepsy N Polyps N Infertility N Acid Reflux (GERD) N Cancer N Abuse/Domestic Violence N Asthma N Endometriosis N High Cholesterol N Hepatitis N Liver Disease N Heart Disease N Pre-Eclampsia N Osteoporosis N Gynecological History Statement/Question Response Abnormal Pap No Sexually Active? N Menses Monthly Y STIs/STDs N Date of Last Pap Smear 10/05/2022 Sexual Problems? N Current Control Method Menopause Most Recent Mammogram 02/27/2024 LMP Definite Obstetrics History GPAL:G 0 P 0 0 0 0 Immunizations Vaccine Type Date Status Note Provider Nam e and Address Organization Details Recorded Time COVID-19 vaccine, vector-nr, rS-Ad26, PF, 0.5 mL 11/06/2020 completed Juli Childress RMA [place], [place] [facility] 10/05/2022 16:13:11 COVID-19 vaccine, vector-nr, rS-Ad26, PF, 0.5 mL 06/11/2021 completed YING Valentin [place], [place] [facility] 10/05/2022 16:13:11 Past Encounters Encounter ID Performer Location Encounter Start Date Encounter Closed Date Diagnosis/Indication Diagnosis SNOMED-CT Code Diagnosis ICD10 Code Diagnosis Note [id number] Emmanuel Lubin ([facility]) [address] [facility] [place] [address] 08/28/2014 13:49:18 08/28/2014 14:46:55 Gynecologic examination [id number] MD Emmanuel Adorno ([facility]) [address] [facility] [place] [address] 08/30/2015 13:58:45 08/30/2015 15:47:53 Gynecologic examination 00550761 Z01.419 Menopause present 444766 006 N95.1 Screening for malignant neoplasm of breast 036287233 Z12.39 Screening for malignant neoplasm of colon 401905631 Z12.11 [id number] MD Emmanuel Adorno ([facility]) [address] [place] [address] 09/04/2016 10:43:02 09/04/2016 15:02:00 Screening for malignant neoplasm of colon 946434311 Z12.11 Gynecologi c examination 77689105 Z01.419 Screening for malignant neoplasm of breast 448162396 Z12.39 Menopause present 702844 006 N95.1 [id number] MD Emmanuel Adorno [facility] ([facility]) [address] [facility] [place] [address] 09/06/2017 10:44:26 09/06/2017 14:12:07 Gynecologic examination 69960916 Z01.419 Body mass index 20-24 - normal 281412119 Z68.23 Screening for malignant neoplasm of colon 379363066 Z12.11 Hormone re placement therapy 758977818 Z79.814 [id number] MD Emmanuel Adorno [address] [facility] [place] [address] 09/10/2018 10:39:33 09/10/2018 14:42:24 Screening for malignant neoplasm of colon 092951606 Z12.11 Gynecologi c examination 23937635 Z01.777 [id number] MD Emmanuel Adorno 14 OB [address] [facility] [place] [address] 09/12/2019 10:40:29 09/15/2019 09:26:19 Gynecologic examination 80232468 Z01.419 Screening for malignant neoplasm of colon 674500697 Z12.11 Screening for malignant neoplasm of breast 367650138 Z12.39 [id number] MD Emmanuel Adorno 14 OB [address] [facility] [place] [address] 09/14/2020 10:52:53 09/15/2020 12:56:37 Gynecologic examination 77485689 Z01.419 Screening for malignant neoplasm of breast 067413465 Z12.39 Menopause present 739634 006 N95.1 [id number] Yasmeen Blanchard RN Emmanuel 14 [address] [facility] [place] [address] 09/20/2021 11:40:01 09/20/2021 12:39:07 [id number] MD Emmanuel Adorno 14 OB [address] [facility] [place] [address] 09/27/2021 10:34:18 09/28/2021 06:40:32 Gynecologic examination 33697212 Z01.419 Screening for malignant neoplasm of breast 676076341 Z12.39 Menopause present 982442 006 N95.1 [id number] MD Emmanuel Adorno 14 OB [address] [facility] [address] [place] [address] 10/05/2022 15:46:51 10/07/2022 11:59:52 Gynecologic examination 19924428 Z01.419 Screening for malignant neoplasm of breast 720601191 Z12.39 Menopause present 673723 006 N95.1 [id number] MD Emmanuel Adorno 14 OB [address] [facility] [address] [place] [address] [address] 11/05/2023 10:59:08 11/06/2023 12:14:37 Gynecologic examination 70227648 Z01.419 Screening for malignant neoplasm of breast 250759821 Z12.39 Health Concerns Section Related Observation LastModified by Organization Detai ls LastModified Time None Recorded Concern Status LastModified by Organization Details LastModified Time None Recorded Advance Directives Directive None Recorded Payers Encounter Date Sequence Insurance Name Policy Number Policy Butler Covered Member ID Butler Member ID Guarantor Name 09/14/2020 1 [facility] (MEDICAID HMO) [id number] Christiana L Ottwell [id number] Christiana L Ottwell 09/20/2021 1 [facility] [place] ([place] [id number] Christiana L Ottwell [id number] Christiana L Ottwell 09/27/2021 1 [employer] [facility] [place] [id number] Christiana L Ottwell [id number] Christiana L Ottwell 10/05/2022 1 [employer] [facility] [place] [id number] Christiana L Ottwell [id number] Christiana L Ottwell 11/05/2023 1 [employer] [facility] [place] [id number] Christiana L Ottwell [id number] Christiana L Ottwell Notes Date Note Type Note Provider Name and Address Organization Details Recorded Time 09/14/2020 text/html Annual Hourly Team Members Post-MenopausalRep orted bypatient.Menopaus al Symptoms:no menopausal symptoms; normal vaginal lubrication Vaginal Bleeding:history of menopause having occurred; no history of post menopausal bleeding Urinary Symptoms:no hematuria; no incontinence; no nocturia; no urinary frequency Vulva:no genital lesion; no vulvar atrophy Vagina:normal vaginal discharge; no vaginal atrophy Breast:no breast lump; no nipple discharge; no breast pain Sexual Complaints:no sexual complaints Psychological Symptoms:no depression; no anxietyNotes:off OCPs one year Oscar Antony MD Attn: [address] [place], [address], [facility] 09/14/2020 11:11:50 09/27/2021 text/html Annual Hourly Team Members Post-MenopausalRep orted bypatient.Menopaus al Symptoms:no menopausal symptoms; normal vaginal lubrication Vaginal Bleeding:history of menopause having occurred; no history of post menopausal bleeding Urinary Symptoms:no hematuria; no incontinence; no nocturia; no urinary frequency Vulva:no genital lesion; no vulvar atrophy Vagina:normal vaginal discharge; no vaginal atrophy Breast:no breast lump; no nipple discharge; no breast pain Sexual Complaints:no sexual complaints Psychological Symptoms:no depression; no anxiety Oscar Antony MD Attn: [address] [place], [address], [facility] 09/27/2021 11:51:05 10/05/2022 text/html Annual Hourly Team Members Post-MenopausalRep orted bypatient.Menopaus al Symptoms:no menopausal symptoms; normal vaginal lubrication Vaginal Bleeding:history of menopause having occurred; no history of post menopausal bleeding Urinary Symptoms:no hematuria; no incontinence; no nocturia; no urinary frequency Vulva:no genital lesion; no vulvar atrophy Vagina:normal vaginal discharge; no vaginal atrophy Breast:no breast lump; no nipple discharge; no breast pain Sexual Complaints:no sexual complaints Psychological Symptoms:no depression; no anxiety workup and biopsy pending of an enlarged rt neck lymph node no new [employer] issues Oscar Antony MD Attn: [address] [place], [address], [facility] 10/05/2022 16:32:18 11/05/2023 text/html Annual Hourly Team Members Post-MenopausalRep orted bypatient.Menopaus al Symptoms:no menopausal symptoms; normal vaginal lubrication Vaginal Bleeding:history of menopause having occurred; no history of post menopausal bleeding Urinary Symptoms:no hematuria; no incontinence; no nocturia; no urinary frequency Vulva:no genital lesion; no vulvar atrophy Vagina:normal vaginal discharge; no vaginal atrophy Breast:no breast lump; no nipple discharge; no breast pain Sexual Complaints:no sexual complaints Psychological Symptoms:no depression; no anxiety Lymph node last year turned out to be lymphomaRX ongoing Oscar Antony MD Attn: [address] [place], [address], [place] [facility] 11/05/2023 11:36:07 OBGyn Episode No OBEpisode recorded.
--- OUTSIDE RECORDS SUMMARY | 2024-08-30 10:05 | XMS_ITS | Referral Summary ---
Author Organization [address] Address [address] [place] [id number] Care Team Providers Care Open Developer Operator Name Role Phone Bo Meneses MD Primary Care Provider [phone] Encounters Date Type Department Care Team Description 07/29/2024 Telephone [facility] [address] [phone] Bo Meneses MD Test Results 07/28/2024 Orders Only [facility] [address] [place] [phone] Scanning, Provider 07/28/2024 9:50 AM MANAGER [employer] Lab [facility] [address] [place] [phone] Annual physical exam 07/28/2024 9:35 AM MANAGER [employer] Lab [facility] [address] [place] [phone] 06/30/2024 3:15 PM MANAGER [employer] Office Visit [facility] [address] [phone] Bo Meneses MD Lymphoma, unspecified body region, unspecified lymphoma type (HCC) (Primary Dx); Annual physical exam; Gastroesophageal reflux disease, unspecified whether esophagitis present from Last 3 Months Allergies Active Allergy Reactions Criticality Noted Date Comments Penicillins Rash Medium 11/11/2020 Medications [id number]-ity-ei [id number]-QT-dkylbw (CENTRUM SILVER WOMEN) 8 mg iron-400 mcg-300 mcg tablet 0 0 10/27/2016 Active elderberry fruit and flower 460-115 mg capsule Take by mouth Active mv-min-iron xmo-SC-T-lyco-l ut 18 mg iron-400 mcg-25 mcg tablet 1 tablet 10/03/2022 Active omeprazole (PriLOSEC) 20 mg capsule Take 1 capsule (20 mg total) by mouth daily 06/13/2023 Active ferrous sulfate ER 324 mg (65 mg iron) EC tabletIndicatio ns:Iron Deficiency Anemia Take 65 mg by mouth 2 (two) times a day with meals Active Active Problems Problem Noted Date Diagnosed Date Annual physical exam 07/09/2024 Gastroesophageal reflux disease 07/09/2024 Malignant lymphoma 06/17/2024 Overview (06/17/2024): diagnosed 2022 Insect bite 06/17/2024 VI (iron deficiency anemia) 06/17/[address] scan, small bowel 06/17/2024 Accidental bee sting 06/12/2023 Allergic reaction 06/12/2023 Follicular lymphoma grade i, 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 06/12/2023 Lymphadenopathy of head and neck 06/12/2023 Contact dermatitis 02/01/2015 Overview (10/13/2016): Contact dermatitis Immunizations Immunization Administration Dates Next Due Influenza, Unspecified 06/30/2024(Deferr ed: Patient Refused),03/09/2024(Deferred: Patient Refused),08/23/2022(Deferred: Patient Refused),06/19/2022(Deferred: Patient Refused),06/19/2022(Deferred: Patient Refused),03/09/2022(Deferred: Patient Refused),07/04/2021(Deferred: Patient Refused),03/09/2021(Deferred: Patient Refused),03/09/2021(Deferred: Patient Refused),07/09/2020(Deferred: Patient Refused) Jooce (J&J) SARS-CoV-2 Vaccination 06/11/2021, 11/06/2020 Social History Tobacco Use Types Packs/Day Years Used Date Smoking Tobacco: Never Smokeless Tobacco: Never Tobacco Cessation:Counseling Given: Not Answered Alcohol Use Standard Drinks/Week Comments Yes 0 (1 standard drink = 0.6 oz pur e alcohol) PHQ-2 Answer Date Recorded PHQ-2 Total Score (If total score is 3 or more points, staff should administer the PHQ-9) 0 06/30/2024 Comments Unknown Sex and Gender Information Value Date Recorded Sex Assigned at Not on file Legal Sex Female 12:51 PM [employer]GER [employer] Gender Identity Not on file Sexual Orientation Not on file Last Filed Vital Signs Vital Sign Reading Time Taken Comments Blood Pressure 130/82 06/30/2024 3:23 PM [employer] Pulse 90 06/30/2024 3:23 PM [employer] Temperature 36.6 C (97.8 F) 06/30/2024 3:23 PM [employer] Respiratory Rate 16 06/30/2024 3:23 PM [employer]GER [employer] Oxygen Saturation 99% 06/30/2024 3:23 PM [employer] room air Inhaled Oxygen Concentration - - Weight 67.9 kg (149 lb 9.6 oz) 06/30/2024 3:23 P M [employer] Height 165.1 cm (5' 5 ) 06/30/2024 3:23 PM [employer] Body Mass Index 24.89 06/30/2024 3:23 PM [employer] Plan of Treatment Not on file Procedures Procedure Name Priority Date/Time Associated Diagnosis Comments EGFR Routine 07/28/2024 9:43 AM [employer] DIFFERENTIAL AUTO Routine 07/28/2024 9:4 3 AM [employer] FOLATE Routine 07/28/2024 9:43 AM [employer] VITAMIN B12 Routine 07/28/2024 9:43 AM [employer] LACTATE DEHYDROGENASE Routine 07/28/2024 9:43 AM [employer] IRON PROFILE W/ IBC Routine 07/28/2024 9 :43 AM [employer] FERRITIN Routine 07/28/2024 9:43 AM [employer] COMPREHENSIVE METABOLIC PANEL Routine 07/28/2024 9:43 AM [employer] CBC WITH AUTO DIFFERENTIAL Routine 07/28/2024 9:43 AM [employer] LIPID PANEL Routine 07/28/2024 9:40 AM [employer] Annual physical exam SCAN - LABS 07/28/2024 HM MAMMOGRAPHY Routine 02/27/2024 8:20 AM CDT COLONOSCOPY Routine 06/13/2023 10:07 AM [employer] from Last 3 Months or Most Recently Relevant to Health Maintenance Results * eGFR (07/28/2024 9:43 AM [employer]NAGER [employer]) eGFR >90 >=60 mL/min/1. 73 m2 Comment: Interpretive Data Reference Interval Normal >/= 90 mL/min/1.73m2 Mildly decreased* 60 - 89 mL/min/1.73m2 Mildly to moderately decreased 45 - 59 mL/min/1.73m2 Moderately to severely decreased 30 - 44 mL/min/1.73m2 Severely decreased 15 - 29 mL/min/1.73m2 Kidney Failure < 15 mL/min/1.73m2 *Relative to young adult level Estimated glomerular filtration rate is determined by the 2020 CKD-EPI equation recommended by the National Kidney Foundation (A Unifying Approach to GFR Estimation: Recommendations of the NKF-ASK Task Force on Reassessing the Inclusion of Race in Diagnosing Kidney Disease, JASN 2020). The CKD-EPI equation should not be used for patients with unstable renal function and has not been validated in children and those over 70. Current interpretive data was last reviewed 2021. Testing performed by: [facility], [address] [place] [address]., [id number] Blood 07/28/2024 9:43 AM [employer]GER [employer] 07/28/2024 12:43 PM [employer]NAGER [employer] us Francisco Cervantes MD LAB BLOOD ORDERABLES Final Res ult JUSTEN STEWART [place]) [address] [facility] [place] [address] * (ABNORMAL) Differential, auto (07/28/2024 9:43 AM [employer]NAGER [employer]) Neutrophil abs 6.8(H) 1.5 - 6.5 K/cumm Comment:Testing performed by : [facility], [address] [place] [address]., [address] Imm gran abs 0.0 0.0 - 0.1 K/cumm [facility] ([place]) Comment:Testing performed by : [facility], [address] [place] [address]., [address] Lymphocyte abs 1.3 0.8 - 3.3 K/cumm [facility] ([place]) Comment:Testing performed by : [facility], [address] [place] [address]., [address] Monocyte abs 0.4 0.2 - 0.8 K/cumm [facility] ([place]) Comment:Testing performed by : [facility], [address] [place] [address]., [address] Eosinophil abs 0.2 0.0 - 0.5 K/cumm [facility] ([place]) Comment:Testing performed by : [facility], [address] [place] [address]., [address] Basophil abs 0.1 0.0 - 0.1 K/cumm [facility] ([place]) Comment:Testing performed by : [facility], [address] [place] [address]., [address] Neutrophil pct 77.7 % [facility] ([place]) Comment: Interpretive Data Percent cell count reference ranges are not reported, since discordance with absolute values may lead to misinterpretation of CBC data. Current Interpretive Data was last revised on 2017. Testing performed by: [facility], [address] [place] [address]., [address] Imm gran pct 0.3 % [facility] ([place]) Comment: Interpretive Data Percent cell count reference ranges are not reported, since discordance with absolute values may lead to misinterpretation of CBC data. Current Interpretive Data was last revised on 2017. Testing performed by: [facility], [address] [place] [address]., [address] Lymphocyte pct 14.6 % [facility] ([place]) Comment: Interpretive Data Percent cell count reference ranges are not reported, since discordance with absolute values may lead to misinterpretation of CBC data. Current Interpretive Data was last revised on 2017. Testing performed by: [address], [address] Monocyte pct 4.9 % [facility] ([place]) Comment: Interpretive Data Percent cell count reference ranges are not reported, since discordance with absolute values may lead to misinterpretation of CBC data. Current Interpretive Data was last revised on 2017. Testing performed by: [facility], [address] [place] [address], [address] Eosinophil pct 1.9 % JOSEPH STEWART ([place]) Comment: Interpretive Data Percent cell count reference ranges are not reported, since discordance with absolute values may lead to misinterpretation of CBC data. Current Interpretive Data was last revised on 2017. Testing performed by: [facility], [address] [place] [address], [address] Basophil pct 0.6 % JUSTEN STEWART ([place]) Comment: Interpretive Data Percent cell count reference ranges are not reported, since discordance with absolute values may lead to misinterpretation of CBC data. Current Interpretive Data was last revised on 2017. Testing performed by: [address], [address] Blood 07/28/2024 9:43 AM [employer] 07/28/2024 9:43 AM [employer]GER [employer] us Francisco Cervantes MD LAB BLOOD ORDERABLES Final Res ult JUSTEN STEWART ([place]) [address] [facility] Department [place] [address] * (ABNORMAL) Iron profile w/ IBC (07/28/2024 9:43 AM MANAGER [employer]) Iron 50 35 - 145 mcg/dl Comment:Testing performed by : [address] [address] TIBC 301 250 - 400 mcg/dL JUSTEN STEWART ([place]) Comment:Testing performed by : [address], [address] Transferrin saturation 17(L) 20 - 50 % JUSTEN STEWART ([place]) Comment:Testing performed by : [address], [id number] Blood 07/28/2024 9:43 AM [employer] 07/28/2024 9:43 AM [employer] us Francisco Cervantes MD LAB BLOOD ORDERABLES Final Res ult [facility] ([place]) [address] [facility] Department [place] [address] * (ABNORMAL) CBC with auto differential (07/28/2024 9:43 AM [employer]NAGER [employer]) WBC 8.7 3.8 - 9.9 K/cumm Comment:Testing performed by : [facility], [address] [place] [address], [address] Hgb 12.4 11.9 - 15.5 g/dL [facility] ([place]) Comment:Testing performed by : [address], [address] Hct 40.8 35.6 - 45.5 % [facility] ([place]) Comment:Testing performed by : [address], [address] Plt 293 150 - 400 K/cumm [facility] ([place]) Comment:Testing performed by : [address], [address] MPV 11.1 9.1 - 12.3 fL [facility] ([place]) Comment:Testing performed by : [address], [address] RBC 4.34 3.90 - 5.20 M/cumm [facility] ([place]) Comment:Testing performed by : [address], [address] MCV 94.0 81.3 - 96.4 fL [facility] ([place]) Comment:Testing performed by : [address], [address] MCH 28.6 27.1 - 33.3 pg [facility] ([place]) Comment:Testing performed by : [address], [address] MCHC 30.4(L) 32.3 - 35.7 g/dL [facility] ([place]) Comment:Testing performed by : [address], [address] RDW CV 12.6 11.1 - 14.9 % JUSTEN STEWART ([place]) Comment:Testing performed by : [facility], [address] [place] [address], [address] RDW SD 43.8 35.7 - 48.1 fL JUSTEN STEWART ([place]) Comment:Testing performed by : [facility], [address] [place] [address], [address] NRBC abs 0.00 0.00 - 0.01 K/cumm JUSTEN STEWART ([place]) Comment:Testing performed by : [facility], [address] [place] [address], [address] Blood 07/28/2024 9:43 AM [employer] 07/28/2024 9:43 AM [employer]GER [employer] Francisco Cervantes MD LAB BLOOD ORDERABLES Final Res ult Performing Organization Address City/[facility]/ZIP Co de Phone Number JUSTEN [facility] ([place]) [address] [place] [address] Department [place] [address] * Lactate dehydrogenase (LD) (07/28/2024 9:43 AM [employer]NAGER [employer]) Lactate dehydrogenase (LDH) 183 100 - 250 Units/L Comment:Testing performed by : [facility], [address] [place] [address], [address] Blood 07/28/2024 9:43 AM [employer] 07/28/2024 9:43 AM [employer]NA[employer] Francisco Cervantes MD LAB BLOOD ORDERABLES Final Res ult [facility] ([place]) [address] [facility] [place] [address] * Folate (07/28/2024 9:43 AM MANAGER [employer]) Folic acid >20.0 >=5.0 ng/mL Comment: Hemolysis present. Results may be affected. Testing performed by: [facility], [address] [place] [address], [address] Blood 07/28/2024 9:43 AM [employer] 07/28/2024 9:43 AM MANAGER [employer] us Francisco Cervantes MD LAB BLOOD ORDERABLES Final Res ult Performing Organization Address [facility] Co de Phone Number JUSTEN STEWART ([place]) [address] [place] [address] * (ABNORMAL) Ferritin (07/28/2024 9:43 AM MANAGER [employer]) Ferritin 192(H) 15 - 150 ng/mL Comment:Testing performed by : [facility], [address] [place] [address], [address] Blood 07/28/2024 9:43 AM [employer] 07/28/2024 9:43 AM MANAGER [employer] us Francisco Cervantes MD LAB BLOOD ORDERABLES Final Res ult Performing Organization Address [facility] de Phone Number JUSTEN STEWART ([place]) [address] [facility] [place] [address] * Vitamin B12 (07/28/2024 9:43 AM MANAGER [employer]) Pathologist [facility] Vitamin B12 832 230 - 1,250 pg/mL Comment:Testing performed by : [facility], [address] [place] [address], [place]., [address] Blood 07/28/2024 9:43 AM [employer] 07/28/2024 9:43 AM MANAGER [employer] us Francisco Cervantes MD LAB BLOOD ORDERABLES Final Res ult Performing Organization Address [facility] de Phone Number JUSTEN STEWART ([place]) [address] [place] [address] * (ABNORMAL) Comprehensive metabolic panel (07/28/2024 9:43 AM MANAGER [employer]) [facility] Sodium 140 135 - 145 mmol/L Comment:Testing performed by : [facility], [address] [place] [address], [address] Potassium, pl 4.0 3.3 - 4.9 mmol/L [facility] ([place]) Comment:Testing performed by : [facility], [address] [place] [address]., [address] Chloride 100 97 - 110 mmol/L [facility] ([place]) Comment:Testing performed by : [facility], [address] [place] [address]., [address] CO2 25 22 - 32 mmol/L [facility] ([place]) Comment:Testing performed by : [facility], [address] [place] [address], [address] Anion gap 15 2 - 15 mmol/L [facility] ([place]) Comment:Testing performed by : [facility], [address] [place] [address], [address] BUN 11 6 - 25 mg/dL [facility] ([place]) Comment:Testing performed by : [facility], [address] [place] [address], [address] Creatinine 0.73 0.60 - 1.10 mg/dL [facility] ([place]) Comment:Testing performed by : [address], [address] Glucose 272(H) 70 - 199 mg/dL [facility] ([place]) Comment: Interpretive Data Fasting glucose >/= 126 mg/dl is diagnostic for diabetes. Fasting is defined as no caloric intake for at least 8 hours. Fasting glucose between 100 mg/dl to 125 mg/dl is diagnostic of prediabetes. In a patient with classic symptoms of hyperglycemia or hyperglycemic crisis, a random glucose >/= 200 mg/dl is diagnostic for diabetes. In the absence of unequivocal hyperglycemia, results should be confirmed by repeat testing. The classification and Diagnosis of Diabetes Diabetes Care 202; 46: S19-S40. Current interpretive data was last revised 2022. Testing performed by: [facility], [address] [place] [address]., [address] Calcium 9.4 8.5 - 10.3 mg/dL [facility] ([place]) Comment:Testing performed by : [address] [address] Bilirubin, total 0.2 0.1 - 1.2 mg/dL [facility] ([place]) Comment:Testing performed by : [facility], [address], [place]., [address] Protein, pl 6.9 6.5 - 8.5 g/dL [facility] ([place]) Comment:Testing performed by : [facility], [address] [place] [address]., [address] Albumin 4.2 3.5 - 5.0 g/dL [facility] ([place]) Comment:Testing performed by : [facility], [address] [place] [address]., [address] Alk phos 96 40 - 130 Units/L [facility] ([place]) Comment:Testing performed by : [facility], [address] [place] [address]., [address] ALT 43 7 - 45 Units/L [facility] ([place]) Comment:Testing performed by : [facility], [address] [place] [address]., [address] AST 36 10 - 45 Units/L [facility] ([place]) Comment:Testing performed by : [address] [address] Blood 07/28/2024 9:43 AM [employer] 07/28/2024 9:43 AM [employer] us Francisco Cervantes MD LAB BLOOD ORDERABLES Final Res ult JUSTEN [facility] ([place]) [address] [facility] [place] [address] * (ABNORMAL) Lipid panel (07/28/2024 9:40 AM [employer]NAGER [employer]) Cholesterol 186 30 - 199 mg/dL Comment: Interpretive Data Ages < or = 19 years Acceptable: <170 mg/dL Borderline high: 170-199 mg/dL High: >or= 200 mg/dL Ages > or = 20 years Desirable: <200 mg/dL Borderline high: 200-239 mg/dL High: >or= 240 mg/dL Literature References: 1. Expert Panel on Integrated Guidelines for Cardiovascular Health and Risk Reduction in Children and Adolescents. Pediatrics 2011;128:S213 2. NCEP Expert Panel. Circulation 2004;110:227 Current Interpretive Data was last revised on 2018. Testing performed by: [address] [address] Triglycerides 196(H) <=149 mg/dL JUSTEN STEWART ([place]) Comment: Interpretive Data Ages < or = 9 years Acceptable: <75 mg/dL Borderline high: 75-99 mg/dL High: >or= 100 mg/dL Ages 10 to 20 years Acceptable: <90 mg/dL Borderline high: 90-129 mg/dL High: >or= 130 mg/dL Ages > or = 20 years Desirable: <150 mg/dL Borderline high: 150-199 mg/dL High: 200-499 mg/dL Very high: >or= 499 mg/dL Literature References: 1. Expert Panel on Integrated Guidelines for Cardiovascular Health and Risk Reduction in Children and Adolescents. Pediatrics 2011;128:S213 2. NCEP Expert Panel. Circulation 2004;110:227 Current Interpretive Data was last revised on 2018. Testing performed by: [facility], [address] [place] [address]., [address] HDL 54 >=40 mg/dL JUSTEN STEWART ([place]) Comment: Interpretive Data Ages < or = 19 years Acceptable: >45 mg/dL Borderline low: 40-45 mg/dL Low: <40 mg/dL Ages > or = 20 years Desirable: >or= 60 mg/dL Low: <40 mg/dL Literature References: 1. Expert Panel on Integrated Guidelines for Cardiovascular Health and Risk Reduction in Children and Adolescents. Pediatrics 2011;128:S213 2. NCEP Expert Panel. Circulation 2004;110:227 Current Interpretive Data was last revised on 2018. Testing performed by: [facility], [address] [place] [address]., [address] LDL, calculated 99 <=129 mg/dL JUSTEN STEWART ([place]) Comment: Interpretive Data Ages < or = 19 years Acceptable: <110 mg/dL Borderline high: 110-129 mg/dL High: >or= 130 mg/dL Ages > or = 20 years Optimal: <100 mg/dL Near optimal: 100-129 mg/dL Borderline high: 130-159 mg/dL High: >160 mg/dL Calculated using the Begum LDL-C estimating equation. This equation was implemented on 2024. Prior to this date LDL-C was estimated using the Friedewald equation. Literature References: 1. Expert Panel on Integrated Guidelines for Cardiovascular Health and Risk Reduction in Children and Adolescents. Pediatrics 2011;128:S213 2. NCEP Expert Panel. Circulation 2004;110:227 3. Begum M et al. DAVIN Cardiol. 2020 November 06;5(5):540-548. doi: 10.1001/[email or web address].2020.0013 Current Interpretive Data was last revised on 2024. Testing performed by: [facility], [address] [place] [address]., [address] Non-HDL Cholesterol 132 mg/dL JUSTEN STEWART ([place]) Comment: Interpretive Data Ages < or = 19 years Acceptable: <120 mg/dL Borderline high: 120-144 mg/dL High: >145 mg/dL Ages > or = 20 years When triglycerides are >200 mg/dL, Non-HDL cholesterol is a secondary target of therapy with treatment goals that are 30 mg/dL greater than the LDL cholesterol target. Literature References: 1. Expert Panel on Integrated Guidelines for Cardiovascular Health and Risk Reduction in Children and Adolescents. Pediatrics 2011;128:S213 2. NCEP Expert Panel. Circulation 2004;110:227 Current Interpretive Data was last revised on 2018. Testing performed by: [facility], [address] [place] [address]., [address] Chol/HDL ratio 3 JOSEPH STEWART ([place]) Comment:Testing performed by : [facility], [address] [place] [address]., [address] Blood 07/28/2024 9:40 AM [employer]GER [employer] 07/28/2024 12:33 PM [employer]NAGER [employer] Bo Meneses MD LAB BLOOD ORDERABLES Brandee l Result JUSTEN TERRY ([place]) [address] [facility] [place] [address] * SCAN - LABS (07/28/2024) Provider Scanning Final Result * HM MAMMOGRAPHY (02/27/2024 8:20 AM CDT) Historical Provider HEALTH MAINTENANCE Edited Result - Final * Colonoscopy (06/13/2023 10:07 AM MANAGER [employer]) Anatomical Region Laterality Modality Other us Historical Provider ENDOSCOPY PROCEDURES Brandee l Result from Last 3 Months or Most Recently Relevant to [place] [id number] [facility] MEDICAID [facility] [place] [phone] [facility] Care Teams Open Developer Operator Relationship Specialty Start Date End Date Bo Meneses MD [address] [place], [place] [address] [facility] - General 10/27/16
--- OUTSIDE RECORDS SUMMARY | 2024-08-30 10:05 | XMS_ITS | Clinical Summary ---
Author Organization [facility] [address] [place] [address] Address [address] [place] [address] Care Team Providers Care [facility] Name Role Phone Bo Meneses MD Primary Care Provider [phone] Allergies Active Allergy Reactions Criticality Noted Date Comments Penicillins Rash Medium 11/11/2020 Medications zvotxblm-bbe-qw wg-KP-olxrgf (CENTRUM SILVER WOMEN) 8 mg iron-400 mcg-300 mcg tablet 0 0 10/27/2016 Active elderberry fruit and flower 460-115 mg capsule Take by mouth Active mv-min-iron qks-OT-T-lyco-l ut 18 mg iron-400 mcg-25 mcg tablet [...] Contact dermatitis 02/01/2015 Overview (10/13/2016): Contact dermatitis Encounters Date Type Department Care Team Description 07/29/2024 Telephone [facility] [address] [phone] Bo Meneses MD Test Results 07/28/2024 9:50 AM WARDROBE IMAGE CONSULTANT Lab [facility] [address] [place] [phone] Annual physical exam 07/28/2024 9:35 AM WARDROBE IMAGE CONSULTANT Lab [facility] [address] [place] [phone] 07/28/2024 Orders Only [facility] Health Information Management [address] [place] [address] Scanning, Provider 06/30/2024 3:15 PM WARDROBE IMAGE CONSULTANT Office Visit [facility] [address] [phone] Bo Meneses MD Lymphoma, unspecified body region, unspecified lymphoma type (HCC) (Primary Dx); Annual physical exam; Gastroesophageal reflux disease, unspecified whether esophagitis present from Last 3 Months Immunizations Immunization Administration Dates Next Due Influenza, Unspecified 06/30/2024(Deferr ed: Patient Refused),03/09/2024(Deferred: Patient Refused),08/23/2022(Deferred: Patient Refused),06/19/2022(Deferred: Patient Refused),06/19/2022(Deferred: Patient Refused),03/09/2022(Deferred: Patient Refused),07/04/2021(Deferred: Patient Refused),03/09/2021(Deferred: Patient Refused),03/09/2021(Deferred: Patient Refused),07/09/2020(Deferred: Patient Refused) Tudou (J&J) SARS-CoV-2 Vaccination 06/11/2021, 11/06/2020 Surgical History Surgery Date Site/Laterality Comments OTHER SURGICAL HISTORY Skin irritation(Bug Bite) NO PAST SURGERIES Medical History Medical History Date Comments No pertinent past medical history Family History Medical History Relation Name Comments Emphysema Father 2 Emphysema; Hypertension Father 2 Hypertension; Lung cancer Father 2 Cancer, lung; Hypertension Mother 2 Hypertension; Other Mother 2 Alive and well; Skin cancer Mother 2 Cancer, skin; Relation Name Status Comments Father 1 (Age 67) Father 2 Mother 1 Alive Mother 2 Social History Tobacco Use Types Packs/Day Years [...] on file Legal Sex Female 12:51 PM WARDROBE IMAGE CONSULTANT Gender Identity Not on file Sexual Orientation Not on file Obstetrics History Last Filed Vital Signs Vital Sign Reading Time Taken Comments Blood Pressure 130/82 06/30/2024 3:23 PM WARDROBE IMAGE CONSULTANT Pulse 90 06/30/2024 3:23 PM WARDROBE IMAGE CONSULTANT Temperature 36.6 C (97.8 F) 06/30/2024 3:23 PM WARDROBE IMAGE CONSULTANT Respiratory Rate 16 06/30/2024 3:23 PM WARDROBE IMAGE CONSULTANT Oxygen Saturation 99% 06/30/2024 3:23 PM WARDROBE IMAGE CONSULTANT room air Inhaled Oxygen Concentration - - Weight 67.9 kg (149 lb 9.6 oz) 06/30/2024 3:23 P M WARDROBE IMAGE CONSULTANT Height 165.1 cm (5' 5 ) 06/30/2024 3:23 PM WARDROBE IMAGE CONSULTANT Body Mass Index 24.89 06/30/2024 3:23 PM WARDROBE IMAGE CONSULTANT Plan of Treatment Health Maintenance Due Date Last Done Comments Cervical Cancer Screening 1962 Hepatitis C Screening 1962 DTaP/Tdap/Td Vaccine (1 - Tdap) 1973 Hepatitis B Screening 1980 Pneumococcal vaccine <65 (1 of 2 - PCV) 1981 Zoster Vaccine (1 of 2) 1981 Covid-19 Vaccine (3 - 2023-2 5 season) 2024 06/11/2021, 11/06/2020 Breast Cancer Screening-Mammogram 02/26/2025 02/27/2024, 02/27/2024, 02/27/2024, Additional history exists Depression Screening 06/30/2025 06/30/2024, 06/25/2023, 08/23/2022, Additional history exists Regular Well Visit/Exam 18-64 06/30/2025, 06/25/2023, 06/19/2022, Additional history exists Colon Cancer Screening-Colonoscopy 06/13/2033 06/13/2023 Colon Cancer Screening-CT Colonography Discontinued 06/13/2023 Colon Cancer Screening-DNA Stool Discontinued 06/13/20 Colon Cancer Screening-FIT Discontinued 06/13/2023 Colon Cancer Screening-Sigmoidoscopy Discontinued 06/13/2023 Influenza Vaccine Discontinued Procedures Procedure Name Priority Date/Time Associated Diagnosis Comments EGFR Routine 07/28/2024 9:43 AM WARDROBE IMAGE CONSULTANT DIFFERENTIAL AUTO Routine 07/28/2024 9:4 3 AM WARDROBE IMAGE CONSULTANT FOLATE Routine 07/28/2024 9:43 AM WARDROBE IMAGE CONSULTANT VITAMIN B12 Routine 07/28/2024 9:43 AM WARDROBE IMAGE CONSULTANT LACTATE DEHYDROGENASE Routine 07/28/2024 9:43 AM WARDROBE IMAGE CONSULTANT IRON PROFILE W/ IBC Routine 07/28/2024 9 :43 AM WARDROBE IMAGE CONSULTANT FERRITIN Routine 07/28/2024 9:43 AM WARDROBE IMAGE CONSULTANT COMPREHENSIVE METABOLIC PANEL Routine 07/28/2024 9:43 AM WARDROBE IMAGE CONSULTANT CBC WITH AUTO DIFFERENTIAL Routine 07/28/2024 9:43 AM WARDROBE IMAGE CONSULTANT LIPID PANEL Routine 07/28/2024 9:40 AM WARDROBE IMAGE CONSULTANT Annual physical exam SCAN - LABS 07/28/2024 HM MAMMOGRAPHY Routine 02/27/2024 8:20 AM CDT COLONOSCOPY Routine 06/13/2023 10:07 AM WARDROBE IMAGE CONSULTANT from Last 3 Months or Most Recently Relevant to Health Maintenance Results * eGFR (07/28/2024 9:43 AM WARDROBE IMAGE CONSULTANT) Pathologist [facility] eGFR >90 >=60 mL/min/1. 73 m2 Comment: [...] was last reviewed 2021. Testing performed by: [address] [address] Blood 07/28/2024 9:43 AM WARDROBE IMAGE CONSULTANT 07/28/2024 12:43 PM WARDROBE IMAGE CONSULTANT us Francisco Cervantes MD LAB BLOOD ORDERABLES Final Res ult JUSTEN STEWART (MOOSE) 1 [facility] Department [place] [address] * (ABNORMAL) Differential, auto (07/28/2024 9:43 AM WARDROBE IMAGE CONSULTANT) Neutrophil abs 6.8(H) 1.5 - 6.5 K/cumm Comment:Testing performed by : [facility], [address] [place] [address]., [id number] Imm gran abs 0.0 0.0 - 0.1 K/cumm JUSTEN STEWART (EMMANUEL) Comment:Testing performed by : [address] [address] Lymphocyte abs 1.3 0.8 - 3.3 K/cumm JUSTEN STEWART (MOOSE) Comment:Testing performed by : [address] [address] Monocyte abs 0.4 0.2 - 0.8 K/cumm [facility] ([place]) Comment:Testing performed by : [facility], [address] [place] [address]., [address] Eosinophil abs 0.2 0.0 - 0.5 K/cumm [facility] ([place]) Comment:Testing performed by : [facility], [address] [place] [address]., [address] Basophil abs 0.1 0.0 - 0.1 K/cumm [facility] ([place]) Comment:Testing performed by : [facility], [address] [place] [address]., [address] Neutrophil pct 77.7 % [facility] (EM[place]) Comment: Interpretive Data Percent cell count reference ranges are not reported, since discordance with absolute values may lead to misinterpretation of CBC data. Current Interpretive Data was last revised on 2017. Testing performed by: [facility], [address] [place] [address]., [address] Imm gran pct 0.3 % [facility] ([place]) Comment: Interpretive Data Percent cell count reference ranges are not reported, since discordance with absolute values may lead to misinterpretation of CBC data. Current Interpretive Data was last revised on 2017. Testing performed by: [address] [address] Lymphocyte pct 14.6 % [facility] ([place]) Comment: Interpretive Data Percent cell count reference ranges are not reported, since discordance with absolute values may lead to misinterpretation of CBC data. Current Interpretive Data was last revised on 2017. Testing performed by: [address] [address] Monocyte pct 4.9 % [facility] ([place]) Comment: Interpretive Data Percent cell count reference ranges are not reported, since discordance with absolute values may lead to misinterpretation of CBC data. Current Interpretive Data was last revised on 2017. Testing performed by: [facility], [address] [place] [address]., [address] Eosinophil pct 1.9 % [facility] ([place]) Comment: Interpretive Data Percent cell count reference ranges are not reported, since discordance with absolute values may lead to misinterpretation of CBC data. Current Interpretive Data was last revised on 2017. Testing performed by: [facility], [address] [place] [address]., [address] Basophil pct 0.6 % JUSTEN STEWART (EMMANUEL) Comment: Interpretive Data Percent cell count reference ranges are not reported, since discordance with absolute values may lead to misinterpretation of CBC data. Current Interpretive Data was last revised on 2017. Testing performed by: [facility], [address] [place] [address]., [id number] Blood 07/28/2024 9:43 AM WARDROBE IMAGE CONSULTANT 07/28/2024 9:43 AM WARDROBE IMAGE CONSULTANT Francisco Cervantes MD LAB BLOOD ORDERABLES Final Res ult Performing Organization Address [facility] Co de Phone Number JUSTEN STEWART (EMMANUEL) 1 [facility] [employer] [address] * (ABNORMAL) Iron profile w/ IBC (07/28/2024 9:43 AM WARDROBE IMAGE CONSULTANT) Iron 50 35 - 145 mcg/dl Comment:Testing performed by : [facility], [address] [place] [address]., [address] TIBC 301 250 - 400 mcg/dL JUSTEN STEWART (EMMANUEL) Comment:Testing performed by : [facility], [address] [place] [address]., [address] Transferrin saturation 17(L) 20 - 50 % JUSTEN STEWART (EMMANUEL) Comment:Testing performed by : [facility], [address] [place] [address]., [address] Blood 07/28/2024 9:43 AM WARDROBE IMAGE CONSULTANT 07/28/2024 9:43 AM WARDROBE IMAGE CONSULTANT us Francisco Cervantes MD LAB BLOOD ORDERABLES Final Res ult Performing Organization Address City/[facility] Co de Phone Number JUSTEN STEWART (EMMANUEL) 1 [facility] [place] [address] * (ABNORMAL) CBC with auto differential (07/28/2024 9:43 AM WARDROBE IMAGE CONSULTANT) WBC 8.7 3.8 - 9.9 K/cumm Comment:Testing performed by : [facility], [address] [place] [address], [address] Hgb 12.4 11.9 - 15.5 g/dL [facility] ([place]) Comment:Testing performed by : [address], [address] Hct 40.8 35.6 - 45.5 % [facility] ([place]) Comment:Testing performed by : [address], [address] Plt 293 150 - 400 K/cumm [facility] ([place]) Comment:Testing performed by : [address], [address] MPV 11.1 9.1 - 12.3 fL [facility] ([place]) Comment:Testing performed by : [address], [address] RBC 4.34 3.90 - 5.20 M/cumm [facility] ([place]) Comment:Testing performed by : [address], [address] MCV 94.0 81.3 - 96.4 fL [facility] ([place]) Comment:Testing performed by : [address], [address] MCH 28.6 27.1 - 33.3 pg [facility] ([place]) Comment:Testing performed by : [address], [address] MCHC 30.4(L) 32.3 - 35.7 g/dL [facility] (EMMAUNEL) Comment:Testing performed by : [address], [address] RDW CV 12.6 11.1 - 14.9 % [facility] ([place]) Comment:Testing performed by : [address], [address] RDW SD 43.8 35.7 - 48.1 fL [facility] ([place]) Comment:Testing performed by : [address], [address] NRBC abs 0.00 0.00 - 0.01 K/cumm [facility] ([place]) Comment:Testing performed by : [facility], [address] [place] [address]., [address] Blood 07/28/2024 9:43 AM WARDROBE IMAGE CONSULTANT 07/28/2024 9:43 AM WARDROBE IMAGE CONSULTANT us Francisco Cervantes MD LAB BLOOD ORDERABLES Final Res ult Performing Organization Address City/[facility]/ZIP Co de Phone Number JUSTEN STEWART (EMMANUEL) 1 [facility] [place] [address] * Lactate dehydrogenase (LD) (07/28/2024 9:43 AM WARDROBE IMAGE CONSULTANT) Lactate dehydrogenase (LDH) 183 100 - 250 Units/L Comment:Testing performed by : [facility], [address] [place] [address], [address] Blood 07/28/2024 9:43 AM WARDROBE IMAGE CONSULTANT 07/28/2024 9:43 AM WARDROBE IMAGE CONSULTANT Francisco Cervantes MD LAB BLOOD ORDERABLES Final Res ult Performing Organization Address [facility] Co de Phone Number JUSTEN STEWART (MOOSE) 1 [place] [address] * Folate (07/28/2024 9:43 AM WARDROBE IMAGE CONSULTANT) Folic acid >20.0 >=5.0 ng/mL Comment: Hemolysis present. Results may be affected. Testing performed by: [facility], [address] [place] [address], [address] Blood 07/28/2024 9:43 AM WARDROBE IMAGE CONSULTANT 07/28/2024 9:43 AM WARDROBE IMAGE CONSULTANT us Francisco Cervantes MD LAB BLOOD ORDERABLES Final Res ult Performing Organization Address City/[facility]/ZIP Co de Phone Number JUSTEN STEWART (EMMANUEL) 1 [facility] [place] [address] * (ABNORMAL) Ferritin (07/28/2024 9:43 AM WARDROBE IMAGE CONSULTANT) Pathologist [facility] Ferritin 192(H) 15 - 150 ng/mL Comment:Testing performed by : [facility], [address] [place] [address]., [address] Blood 07/28/2024 9:43 AM WARDROBE IMAGE CONSULTANT 07/28/2024 9:43 AM WARDROBE IMAGE CONSULTANT Francisco Cervantes MD LAB BLOOD ORDERABLES Final Res ult Performing Organization Address [facility] Co de Phone Number JUSTEN STEWART (MOOSE) 1 [facility] [place] [address] * Vitamin B12 (07/28/2024 9:43 AM WARDROBE IMAGE CONSULTANT) [facility] Vitamin B12 832 230 - 1,250 pg/mL Comment:Testing performed by : [facility], [address] [place] [address], [address] Blood 07/28/2024 9:43 AM WARDROBE IMAGE CONSULTANT 07/28/2024 9:43 AM WARDROBE IMAGE CONSULTANT Francisco Cervantes MD LAB BLOOD ORDERABLES Final Res ult Performing Organization Address [facility] de Phone Number JUSTEN STEWART (MOOSE) 1 [facility] [place] [address] * (ABNORMAL) Comprehensive metabolic panel (07/28/2024 9:43 AM WARDROBE IMAGE CONSULTANT) [facility] Sodium 140 135 - 145 mmol/L Comment:Testing performed by : [facility], [address] [place] [address]., [address] Potassium, pl 4.0 3.3 - 4.9 mmol/L [facility] ([place]) Comment:Testing performed by : [facility], [address] [place] [address]., [address] Chloride 100 97 - 110 mmol/L [facility] ([place]) Comment:Testing performed by : [address] [address] CO2 25 22 - 32 mmol/L [facility] ([place]) Comment:Testing performed by : [facility], [address], [place]., [address] Anion gap 15 2 - 15 mmol/L [facility] (EM[place]) Comment:Testing performed by : [address] [address] BUN 11 6 - 25 mg/dL [facility] ([place]) Comment:Testing performed by : [address], [address] Creatinine 0.73 0.60 - 1.10 mg/dL [facility] ([place]) Comment:Testing performed by : [address], [address] Glucose 272(H) 70 - 199 mg/dL CERNER [...] classification and Diagnosis of Diabetes Diabetes Care 2021; 46: S19-S40. Current interpretive data was last revised 2022. Testing performed by: [address], [address] Calcium 9.4 8.5 - 10.3 mg/dL [facility] ([place]) Comment:Testing performed by : [address], [address] Bilirubin, total 0.2 0.1 - 1.2 mg/dL [facility] ([place]) Comment:Testing performed by : [address], [address] Protein, pl 6.9 6.5 - 8.5 g/dL [facility] ([place]) Comment:Testing performed by : [address], [address] Albumin 4.2 3.5 - 5.0 g/dL [facility] ([place]) Comment:Testing performed by : [address], [address] Alk phos 96 40 - 130 Units/L [facility] ([place]) Comment:Testing performed by : [facility], [address] [place] [address]., [address] ALT 43 7 - 45 Units/L [facility] (EM[place]) Comment:Testing performed by : [facility], [address] [place] [address]., [address] AST 36 10 - 45 Units/L [facility] ([place]) Comment:Testing performed by : [facility], [address] [place] [address], [address] Blood 07/28/2024 9:43 AM WARDROBE IMAGE CONSULTANT 07/28/2024 9:43 AM WARDROBE IMAGE CONSULTANT us Francisco Cervatnes MD LAB BLOOD ORDERABLES Final Res ult JUSTEN STEWART (EMMANUEL) 1 [facility] Department [place] [address] * (ABNORMAL) Lipid panel (07/28/2024 9:40 AM WARDROBE IMAGE CONSULTANT) Cholesterol 186 30 - 199 mg/dL Comment: [...] last revised on 2018. Testing performed by: [facility], [address] [place] [address]., [address] Triglycerides 196(H) <=149 mg/dL [facility] ([place]) Comment: Interpretive Data Ages < or [...] last revised on 2018. Testing performed by: [facility], [address] [place] [address]., [address] HDL 54 >=40 mg/dL JUSTEN STEWART (EMMANUEL) [...] last revised on 2018. Testing performed by: [address] [address] LDL, calculated 99 <=129 mg/dL JUSTEN STEWART (EMMANUEL) Comment: Interpretive Data Ages < or = 19 years Acceptable: <110 mg/dL Borderline high: 110-129 mg/dL High: >or= 130 mg/dL Ages > or = 20 years Optimal: <100 mg/dL Near optimal: 100-129 mg/dL Borderline high: 130-159 mg/dL High: >160 mg/dL Calculated using the Kel LDL-C estimating equation. This equation was implemented on 2024. Prior to this date LDL-C was estimated using the Friedewald equation. Literature References: 1. Expert Panel on Integrated Guidelines for Cardiovascular Health and Risk Reduction in Children and Adolescents. Pediatrics 2011;128:S213 2. NCEP Expert Panel. Circulation 2004;110:227 3. Kel Nguyen et al. DAVIN Cardiol. 2020 November 06;5(5):540-548. doi: 10.1001/jamacardio.2020.0013 Current Interpretive Data was last revised on 2024. Testing performed by: [address] [address] Non-HDL Cholesterol 132 mg/dL JUSTEN STEWART (EMMANUEL) [...] last revised on 2018. Testing performed by: [facility], [address] [place] [address]., [address] Chol/HDL ratio 3 JOSEPH STEWART (MOOSE) Comment:Testing performed by : [facility], [address] [place] [address]., [address] Blood 07/28/2024 9:40 AM WARDROBE IMAGE CONSULTANT 07/28/2024 12:33 PM WARDROBE IMAGE CONSULTANT Bo Meneses MD LAB BLOOD ORDERABLES Brandee l Result JUSTEN STEWART (MOOSE) 1 [facility] Department [place] [address] * SCAN - LABS (07/28/2024) Provider Scanning Final Result * HM MAMMOGRAPHY (02/27/2024 8:20 AM CDT) Historical Provider HEALTH MAINTENANCE Edited Result - Final * Colonoscopy (06/13/2023 10:07 AM WARDROBE IMAGE CONSULTANT) Anatomical Region Laterality Modality Other Historical Provider ENDOSCOPY PROCEDURES Brandee l Result from Last 3 Months or Most Recently Relevant to [place] [address] [facility] MEDICA[facility] [place] [address] [facility] Care Teams Spring Internship Relationship Specialty Start Date End [place] [address] PCP - General 10/27/16
--- OUTSIDE RECORDS SUMMARY | 2024-08-30 10:05 | XMS_ITS | Encounter Summary ---
Author Organization [facility] Healthcare Address [address] [place] [address] Care Team Providers Care Viscose Department Worker Name Role Phone Bo Meneses MD Primary Care Provider [phone] Reason for Visit * Reason Onset Date Comments Test Results 07/29/2024 Encounter Details Date Type Department Care Team (Late st Contact Info) Description 07/29/2024 Telephone [facility] [place] [address] [facility] [place] [address] Bo Meneses MD [address] [facility] [address] Test Results Social History Tobacco Use Types Packs/Day Years Used Date Smoking Tobacco: Never Smokeless Tobacco: Never Alcohol Use Standard Drinks/Week Comments Yes 0 (1 standard drink = 0.6 oz pur e alcohol) PHQ-2 Answer Date Recorded PHQ-2 Total Score (If total score is 3 or more points, staff should administer the PHQ-9) 0 06/30/2024 Comments Unknown Sex and Gender Information Value Date Recorded Sex Assigned at Not on file Legal Sex Female 12:51 PM SHAREHOLDER Gender Identity Not on file Sexual Orientation Not on file documented as of this encounter Miscellaneous Notes * Telephone Encounter - Elizabeth [place] MA - 07/29/2024 4:56 PM CST Pt aware EHOLDER * Telephone Encounter - Elizabeth [place] MA - 07/29/2024 9:27 AM CST Please review lab results. Pt also reports she was not fasting at time of blood draw. EHOLDER * Telephone Encounter - Tabitha Holbrook - 07/29/2024 9:21 AM CST Test Result Request Type of test: Lipid Panel Date of test: 07/28/24 Where [facility] performed [facility] Did provider dictate result yet? No Additional Questions/Comments: Patient went for other labs for another provider and she was told she had a lipid panel to do from Dr. Farrell's. Patient was not fasting for the lab. Does message need to be routed? Yes-Action Needed EHOLDER documented in this encounter Plan of Treatment Not on file documented as of this encounter Visit Diagnoses Not on filedocumented in this encounter Care Teams Viscose Department Worker Relationship Specialty Start Date End [place] [address] PCP - General 10/27/16 documented as of this encounter
--- OUTSIDE RECORDS SUMMARY | 2024-08-30 10:05 | XMS_ITS | Clinical Summary ---
Author Organization [facility] Josi orta Jeannette Address [address] [place] [address] Care Team Providers Care Oncology Technician Name Role Phone Bo Meneses MD Primary Care Provider [phone] Allergies Active Allergy Reactions Criticality Noted Date Comments Penicillins Rash Medium 11/11/2020 Medications elderberry fruit and flower 460-115 mg Capsule Take by mouth. Active multivitamins-mi nerals-lutein (CENTRUM SILVER) Tablet Take 1 Tablet by mouth daily. Active ferrous sulfate 324 mg (65 mg iron) Tablet, Delayed Release (E.C.) Take 65 mg by mouth 2 times daily. Active omeprazole (PriLOSEC) 20 mg Capsule, Delayed Release(E.C.) Take 20 mg by mouth daily. Active ASCORBIC ACID, VITAMIN C, ORAL Take 500 mg by mouth daily. 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) 07/30/2024 External Device Data STL ABSTRACTION Provider, Abstract 07/30/2024 Orders Only [facility] [address] [place] [phone] Francisco Cervantes MD 07/29/2024 External Device Data STL ABSTRACTION Provider, Abstract 07/23/2024 External Device Data STL ABSTRACTION Provider, Abstract 07/15/2024 External Device Data STL ABSTRACTION Provider, Abstract from Last 3 Months Family History Medical History Relation Name Comments Heart Disease Father Skin Cancer Mother Relation Name Status Comments Brother Alive Father Mother Alive Sister 1 Alive Sister 2 Alive Social History Tobacco Use Types Packs/Day Years Used Date Smoking Tobacco: Never Smokeless Tobacco: Never Alcohol Use Standard Drinks/Week Comments Yes 0 (1 standard drink = 0.6 oz pur e alcohol) occasionally Comments Unknown Sex and Gender Information Value Date Recorded Sex Assigned at Not on file Legal Sex Female 2:32 PM CDT Gender Identity Not on file Sexual Orientation Not on file Last Filed Vital Signs Vital Sign Reading Time Taken Comments Blood Pressure 158/91 08/05/2024 11:04 AM LEARNING SOLUTIONS SPECIALIST Pulse 106 08/05/2024 11:00 AM LEARNING SOLUTIONS SPECIALIST Temperature 36.8 C (98.3 F) 08/05/2024 11:00 AM LEARNING SOLUTIONS SPECIALIST Respiratory Rate 16 08/05/2024 11:00 AM LEARNING SOLUTIONS SPECIALIST Oxygen Saturation 98% 08/05/2024 11:00 AM LEARNING SOLUTIONS SPECIALIST Inhaled Oxygen Concentration - - Weight 66.8 kg (147 lb 3.2 oz) 08/05/2024 11:00 AM LEARNING SOLUTIONS SPECIALIST Height 167.6 cm (5' 6 ) 11/01/2022 2:55 PM CDT Body Mass Index 23.76 11/01/2022 2:55 PM CDT Plan of Treatment Upcoming Encounters Date Type Department Care Team (Late st Contact Info) Description 02/02/2025 3:30 PM CDT Office Visit [facility] [place] [address] [facility] [address] [place] [address] Francisco Cervantes MD [address] [facility] [address] [place] [address] Health Maintenance Due Date Last Done Comments DTAP/TDAP/TD VACCINES (1 - Tdap) 1981 CERVICAL CANCER SCREENING 1992 FIT-DNA Q 3 years 2007 FIT/FOBT Q 1 year 2007 Flex Sig/CT Colonography Q 5 years 2007 ZOSTER VACCINE (1 of 2) 2012 INFLUENZA VACCINE (#1) 2024 COVID-19 Vaccine (2023-2 5 season) 2024 06/11/2021, 11/06/2020 BREAST CANCER SCREENING 02/26/2025 02/27/20, 03/05/2023, 01/28/2022, Additional history exists Preventative Visit-Managed Medicaid 07/01/2025 06/30/2024, 11/05/2023, 06/25/2023, Additional history exists COLORECTAL SCREENING 06/13/2033 06/13/2023 Colorectal Cancer Screening 06/13/2033 RSV VACCINE (60+ or ) (1 - 1-dose 75+ series) 2037 Procedures Procedure Name Priority Date/Time Associated Diagnosis Comments COMPREHENSIVE METABOLIC PANEL Routine 07/28/2024 12:53 PM LEARNING SOLUTIONS SPECIALIST from Last 3 Months Results * COMPREHENSIVE METABOLIC PANEL (07/28/2024 12:53 PM LEARNING SOLUTIONS SPECIALIST) Blood Francisco eCrvantes MD CHEMISTRY ORDERABLES Final Resu lt from Last 3 Months Insurance [place] [id number] [employer] Care Teams Oncology Technician Relationship Specialty Start Date End Date [place] [address] PCP - General Family Practice 11/01/22
--- OUTSIDE RECORDS SUMMARY | 2024-08-30 10:05 | XMS_ITS | Referral Summary ---
Author Organization [facility] Address [address] [place] [address] Care Team Providers Care Head Cager Name Role Phone Unavailable Primary Care Provider Unavailabl e Source Comments [facility] [employer],non-owned Affiliates and Associated Physician Practices is amultiple site organization consisting of ambulatory clinics and hospital sitesin [place], [place], [place] and [place]. This disclosure is being madepursuant to the Care Everywhere program and may not contain all information available regarding this patient. Last updated 18.[facility] [employer] Allergies No known active allergies Medications * Be aware that medications may not be up to date on this document. Alwaysverify current medications with the patient. Medication Sig Dispensed Refills Start Date End Date Status Norgestimate-Eth Estradiol (SPRINTEC 28 PO) Active Social History Tobacco Use Types Packs/Day Years Used Date Smoking Tobacco: Never Assessed Sex and Gender Information Value Date Recorded Sex Assigned at Not on file Gender Identity Not on file Sexual Orientation Not on file Last Filed Vital Signs Vital Sign Reading Time Taken Comments Blood Pressure 124/70 04/14/2016 9:10 AM CDT Pulse 73 04/14/2016 9:10 AM CDT Temperature 36.7 C (98.1 F) 04/14/2016 9:10 AM CDT Respiratory Rate 16 04/14/2016 9:10 AM CDT Oxygen Saturation 99% 04/14/2016 9:10 AM CDT Inhaled Oxygen Concentration - - Weight 59 kg (130 lb) 04/14/2016 9:10 AM CDT Height 167.6 cm (5' 6 ) 04/14/2016 9:10 AM CDT Body Mass Index 20.98 04/14/2016 9:10 AM CDT Plan of Treatment Not on file Christiana Locke Personal/Family Self [address] [place] [address] CHRISTIANA LOCKE Personal/Family Spouse [address] [place] [address] [place] [address]
--- OUTSIDE RECORDS SUMMARY | 2024-08-30 10:05 | XMS_ITS | Encounter Summary ---
Author Organization [facility] Address [address] [facility] [place] [address] Care Team Providers Care Hospital Receiving Clerk Name Role Phone Unavailable Primary Care Provider Unavailabl e Encounter Details Date Type Department Care Team (Late st Contact Info) Description 11/10/2022 Lab Requisition [facility] Care Pathology Lab [address] [place] [address] Earl Ingram MD [address] [address] Illness, unspecified Social History Tobacco Use Types Packs/Day Years Used Date Smoking Tobacco: Never Assessed Sex and Gender Information Value Date Recorded Sex Assigned at Not on file Gender Identity Not on file Sexual Orientation Not on file documented as of this encounter Plan of Treatment Not on file documented as of this encounter Visit Diagnoses Diagnosis Illness, unspecified documented in this encounter
--- OUTSIDE RECORDS SUMMARY | 2024-08-30 10:05 | XMS_ITS | Clinical Summary ---
Author Organization [facility] [employer] Address [address] [place] [address] Care Team Providers Care Molded Goods Inspector Trimmer Name Role Phone Unavailable Primary Care Provider Unavailabl e Source Comments [facility] [employer],non-owned Affiliates and Associated Physician Practices is amultiple site organization consisting of ambulatory clinics and hospital sitesin [place], [place], [place] and [place]. This disclosure is being madepursuant to the Care Everywhere program and may not contain all information available regarding this patient. Last updated 18.[facility] Allergies No known active allergies Medications * [...] 04/14/2016 9:10 AM CDT Plan of Treatment Health Maintenance Due Date Last Done Comments JAQUELIN (AGES 45-75) - COL ON CA SCREENING 1960 COLON MONITORING 1962 COLONOSCOPY - COLON CA SCREENING 1962 CT COLONOGRAPHY - COLON CA SCREENING 1960 Colorectal Cancer Screening 1962 FIT - COLON CA SCREENING 1962 FLEX SIG - COLON CA SCREENING 1962 LIPID TESTING 1962 MAMMOGRAM 1962 PAP SMEAR 1962 HIV SCREENING 1977 HEPATITIS C SCREENING 03/23/1980 DTAP/TDAP/TD VACCINES (1 - Tdap) 1981 PNEUMOCOCCAL VACCINE 50+ (1 of 1 - PCV) 2012 ZOSTER VACCINE (1 of 2) 2012 COVID-19 VACCINE ( - 2023-2 5 season) 2024 INFLUENZA VACCINE (#1) 2024 DEPRESSION SCREENING 07/09/2024 Respiratory Syncytial Virus (RSV) Vaccine Pt: or over 60 yrs (1 - 1-dose 75+ series) 2037 HEPATITIS B VACCINE Aged Out No longe r eligible based on patient's age to complete this topic HIB VACCINE Aged Out No longer eligi ble based on patient's age to complete this topic HPV VACCINE Aged Out No longer eligi ble based on patient's age to complete this topic MENINGOCOCCAL (Group B) VACCINE Aged Out No longer eligible based on patient's age to complete this topic MENINGOCOCCAL VACCINE Aged Out No marichuy obdulio eligible based on patient's age to complete this topic PNEUMOCOCCAL VACCINE Aged Out No long er eligible based on patient's age [place] [id number] Reece Gimenezny Personal/Family Self [address] [place] [address] [place] [address] NATALIAJEWELREECEMAGGI Personal/Family Spouse [address] [place] [address] [place] [address]
--- OUTSIDE RECORDS SUMMARY | 2024-08-30 10:05 | XMS_ITS | Patient Health Summary ---
Author Organization [facility] Address [address] [place] [address] Care Team Providers Care Computer Technology Trainer Name Role Phone Unavailable Primary Care Provider Unavailabl e Note from [facility],non-owned Affiliates and Associated Physician Practices is amultiple site organization consisting of ambulatory clinics and hospital sitesin [place], [place], [place] and [place]. This disclosure is being madepursuant to the Care Everywhere program and may not contain all information available regarding this patient. Last updated 18.[facility] [employer] Allergies No known active allergies* Penicillins(Rash) -Medium Criticality,Inactive Medications * Be aware that medications may not be up to date on this document. Alwaysverify current medications with the patient. * Norgestimate-Eth Estradiol (SPRINTEC 28 PO) Social History Tobacco Use Types Packs/Day Years [...] Mass Index 20.98 04/14/2016 9:10 AM CDT Procedures * BONE MARROW BIOPSY (STL)(Performed 11/08/2022) Performed for Illness, unspecified * FLOW CYTOMETRY BONE MARROW(Performed 11/08/2022) Performed for Follicular lymphoma grade i, lymph nodes of multiple sites (CMS/HCC) * PATHOLOGY TISSUE(Performed 10/20/2022) Performed for Illness, unspecified Results * FLOW CYTOMETRY BONE MARROW (11/08/2022 9:20 AM CDT) Case Report Flow Cytometry Case: [id number] Authorizing Provider: Earl Ingram MD Collected: 11/08/2022 09:20 AM Ordering Location: [facility] Pathology Lab Received: 11/08/2022 12:58 PM Pathologist: Naila Mandel MD Specimen: Bone Marrow 11/08/2022 3:[address] [facility] Final Diagnosis Bone marrow, flow cytometry: - No clonal B-cell or increased blast population identified 11/08/2022 3:[address] [facility] Flow Cytometry Interpretation The bone [...] the flow cytometry specimen is reviewed for aerospace quality engineer purposes. 11/08/2022 3:[address] [facility] Flow Cytometry Results Differential Result Comment Flow Cell Count /uL 49,000 Total Viability % 92.0 Lymphocytes % 10 Dim CD45 Region % 8 Monocytes % 6 Granulocytes % 75 11/08/2022 3:[address] [facility] Reason for test Follicular lymphoma grade 1, lymph nodes of multiple sites (CMS/HCC) 11/08/2022 3:[address] [facility] Client Specimen ID # [id number] 11/08/2022 3:[address] [facility] Number of markers 10 were performed. A-1 Flow CD3 A-3 Flow CD10 A-5 Flow CD20 A-6 Flow CD23 A-2 Flow CD5 A-4 Flow CD19 A-7 Flow CD34 A-8 Flow CD45 A-9 [place]+CD19+ A-10 Lambda+CD19+ 11/08/2022 3:[address] [facility] Disclaimer Test performed at [facility], [address] [place], [place], [address]. *The established laboratory minimum viability is 70%. [...] complexity clinical testing. 11/08/2022 3:[address] [facility] Embedded Images 3:[address] [facility] Pathology/Cytolo gy BONE MARROW SPECIMEN / Unknown 11/08/2022 9:20 AM CDT 11/08/2022 12:58 PM CDT Earl Ingram MD LAB - PATHOLOGY/CYTO LOGY ORDERABLES [facility] [address] [place] [address]. [place] [address], [facility] [phone] * BONE MARROW BIOPSY (STL) (11/08/2022 9:20 AM CDT) Case Report Bone Marrow Patholog y Report Case: [id number] Authorizing Provider: Earl Ingram MD Collected: 11/08/2022 09:20 AM Ordering Location: [facility] Pathology Lab Received: 11/10/2022 10:05 AM Pathologist: Naila Mandel MD Specimens: A) - Bone Marrow Clot, bone marrow aspirate B) - Bone Marrow Core, left hip 11/10/2022 4:[address] [facility] Final Diagnosis Bone marrow, aspirate, clot section, and core biopsy: - Slightly hypocellular marrow with maturing trilineage hematopoiesis and mild involvement by low-grade follicular lymphoma (~5-7% of marrow cellularity) - See description. Peripheral blood smear: - Essentially normal blood smear. - See description. 11/10/2022 4:03 PM [facility] Comment Immunohistochemistry is performed to assess staining cells in an architectural context: CD20, PAX-5, and CD79a highlight the tight para-trabecular lymphoid aggregates as follicular lymphoma B-cells (~5-7% of marrow cellularity). CD3 highlights background T-lymphocytes. 11/10/2022 4:03 PM [facility] Peripheral Smear Description RBC: normocytic red blood cells. WBC: normal in number and morphology. Platelets: normal in number and morphology. 11/10/2022 4:03 PM [facility] Bone Marrow Aspirate Differential count (200 cells): 0% blasts, 61% maturing myeloid precursors, 20% erythroid progenitors, 6% monocytes, 2% eosinophils, 11% lymphocytes (no overt atypia), 0% plasma cells. Specimen quality: adequate. Spicules: few. Trilineage Hematopoiesis: present. Myeloid:Erythroid ratio: normal. Myeloid Maturation: normal. Erythroid Maturation: normal. Megakaryocyte morphology: normal size. Storage iron (by special stain): adequate. Sideroblastic iron (by special stain): no ring sideroblasts. 11/10/2022 4:03 PM [facility] Bone Marrow Core Biopsy and Clot Section Description Specimen quality: adequate with 1.4 cm of evaluable marrow. Cellularity: 40% Trilineage Hematopoiesis: present. Myeloid to Erythroid ratio: normal. Myeloid maturation and localization: normal. Erythroid maturation and localization: normal. Megakaryocyte number: normal. Megakaryocyte distribution: normal. Lymphoid aggregates: present, tightly para-trabecular, involving ~5-7% of marrow cellularity and composed of small lymphoid cells. Bone trabeculae: thin. Blood vessels: normal. Plasma cells: normal. Clot section marrow particles: numerous. Clot section morphology: similar to core biopsy. 11/10/2022 4:03 PM [facility] Flow Cytometry Summary Bone marrow, flow cytometry ([id number]): - No clonal B-cell or increased blast population identified. 11/10/2022 4:[address] [facility] Clinical History Follicular lymphoma. 11/10/2022 4:[address] [facility] Materials Received Received are twenty slide(s), and 3 blocks (A1; A2; B1) labeled [id number] along with a copy of the outside pathology report. [place] [address]. All original materials are returned to the referring institution, along with a copy of our final report. 11/10/2022 4:[address] [facility] Disclaimer The performance characteristics of all immunohistochemical and indirect immunofluorescence stains (if any) cited in this report were determined by the Histopathology Laboratory of [place] [facility]. Some of these tests were developed by [...] and interpreted by the attending (teaching) pathologist. 11/10/2022 4:[address] [facility] Embedded Images 11/10/2022 4:[address] [facility] Pathology/Cytology BONE MARROW SPECIMEN / Unknown 11/08/2022 9:20 AM CDT 11/10/2022 10:05 AM CDT Miscellaneous samples (specimen) BONE MARROW SPECIMEN / Unknown 11/08/2022 9:20 AM CDT 11/10/2022 10:05 AM CDT Earl Ingram MD LAB - PATHOLOGY/CYTO LOGY ORDERABLES [facility] [address] [place], [place] [id number] [place] [address] * PATHOLOGY TISSUE (10/20/2022 1:10 PM CDT) Case Report Surgical Pathology Report Case: [id number] Authorizing Provider: Earl Ingram MD Collected: 10/20/2022 01:10 PM Ordering Location: [facility] Pathology Lab Received: 10/25/2022 11:17 AM Pathologist: Naila Mandel MD Specimen: Lymph Node Biopsy, Left neck lymph node 10/26/2022 9:[address] [facility] Final Diagnosis Left neck lymph node, biopsy core: - Follicular lymphoma, low-grade 10/26/2022 9:53 AM [facility] Microscopic Description and Comment Histologic sections show small fragments of lymphoid tissue with closely packed follicles, morphologically consistent with follicular lymphoma. Immunohistochemistry performed at [facility] Pathology show the neoplastic follicles to be BCL-6 and BCL-2 positive. The nodularity is also highlighted by CD21, and CD3 highlights background T-cells. Flow cytometry reportedly showed a CD10+ monotypic CD19+/CD20+ B-cell population with kappa light chain restriction. Overall findings are those of low-grade follicular lymphoma. 10/26/2022 9:53 AM [facility] Clinical History 10/26/2022 9:53 AM [facility] Materials Received Received are four slide(s), and one block (A1) labeled [id number] along with a copy of the outside pathology report. The materials originate from [facility]. All original materials are returned to the referring institution, along with a copy of our final report. 10/26/2022 9:53 AM [facility] Disclaimer The performance characteristics of all immunohistochemical and indirect immunofluorescence stains (if any) cited in this report were determined by the Histopathology Laboratory of [place] [facility]. Some of these tests were developed by [...] the attending (teaching) pathologist. 10/26/2022 9:53 AM [facility] Embedded Images 10/26/2022 9:53 AM [facility] Pathology/Cytolo gy BIOPSY OF LYMPH NODE / Unknown 10/20/2022 1:10 PM CDT 10/25/2022 11:17 AM CDT Earl Ingram MD LAB - PATHOLOGY/CYTO LOGY ORDERABLES Performing Organization Address City/State/[facility] Co de Phone Number [facility] [address] [phone]
--- OUTSIDE RECORDS SUMMARY | 2024-08-30 10:05 | XMS_ITS | Encounter Summary ---
Author Organization [facility] Health Address [address] [place] [address] Care Team Providers Care Start Up Specialist Name Role Phone Unavailable Primary Care Provider Unavailabl e Encounter Details Date Type Department Care Team (Late st Contact Info) Description 11/10/2022 Lab Requisition [facility] Care Pathology Lab [address] [place] [address] Earl Ingram MD [address] [id number] Illness, unspecified Social History Tobacco [...] Procedure Name Priority Date/Time Associated Diagnosis Comments BONE MARROW BIOPSY (STL) Routine 11/08/2022 9:20 AM CDT Illness, unspecified documented in this encounter Results * BONE MARROW BIOPSY (STL) (11/08/2022 9:20 AM CDT) Case Report Bone Marrow Patholog y Report Case: [id number] Authorizing Provider: Earl Ingram MD Collected: 11/08/2022 09:20 AM Ordering Location: [facility] Care Pathology Lab Received: 11/10/2022 10:05 AM Pathologist: Naila Mandel MD Specimens: A) - Bone Marrow Clot, bone marrow aspirate B) - Bone Marrow Core, left hip 11/10/2022 4:03 PM CDT [facility] Final Diagnosis Bone marrow, aspirate, clot section, and core biopsy: - Slightly hypocellular marrow with maturing trilineage hematopoiesis and mild involvement by low-grade follicular lymphoma (~5-7% of marrow cellularity) - See description. Peripheral blood smear: - Essentially normal blood smear. - See description. 11/10/2022 4:03 PM [facility] Comment Immunohistochemistry is performed to assess staining cells in an architectural context: CD20, PAX-5, and CD79a highlight the tight para-trabecular lymphoid aggregates as follicular lymphoma B-cells (~5-7% of marrow cellularity). CD3 highlights background T-lymphocytes. 11/10/2022 4:03 PM [facility] Peripheral Smear Description RBC: normocytic red blood cells. WBC: normal in number and morphology. Platelets: normal in number and morphology. 11/10/2022 4:03 PM [facility] Bone Marrow Aspirate Differential count [...] stain): no ring sideroblasts. 11/10/2022 4:03 PM [facility] Bone Marrow Core Biopsy and [...] similar to core biopsy. 11/10/2022 4:03 PM [facility] Flow Cytometry Summary Bone marrow, flow cytometry ([id number]): - No clonal B-cell or increased blast population identified. 11/10/2022 4:03 PM [facility] Clinical History Follicular lymphoma. 11/10/2022 4:03 PM T [facility] PATHOLOG[facility] Materials Received Received are twenty slide(s), and 3 blocks (A1; A2; B1) labeled [id number] along with a copy of the outside pathology report. [place] [address]. All original materials are returned to the referring institution, along with a copy of our final report. 11/10/2022 4:03 PM [facility] Disclaimer The performance characteristics of all immunohistochemical and indirect immunofluorescence stains (if any) cited in this report were determined by the Histopathology Laboratory of [facility]. Some of these tests were [...] the attending (teaching) pathologist. 11/10/2022 4:03 PM [facility] Embedded Images 11/10/2022 4:03 PM T [facility] PATHOLOG[facility] LAB Pathology/Cytology BONE MARROW SPECIMEN / Unknown 11/08/2022 9:20 AM CDT 11/10/2022 10:05 AM CDT Miscellaneous samples (specimen) BONE MARROW SPECIMEN / Unknown 11/08/2022 9:20 AM CDT 11/10/2022 10:05 AM CDT Earl Ingram MD LAB - PATHOLOGY/CYTO LOGY ORDERABLES [facility] PATHOLOGY LAB [address] [place] [address], [facility] [phone] documented in this encounter Visit Diagnoses Diagnosis Illness, unspecified documented in this encounter
[2024-08-30 10:06] VITALS: BP 165/95; PULSE 155; RESP 20; TEMP 36.7; O2SAT 98
--- OUTSIDE RECORDS SUMMARY | 2024-08-30 10:06 | XMS_ITS | Clinical Summary ---
Author Organization [facility] Address [address] [place] [address] Phone Care Team Providers Care Director Of Health Care Marketing Name Role Phone Bo Meneses MD Primary Care Provider [phone] Social History Tobacco Use Types Packs/Day Years Used Date Smoking Tobacco: Never Assessed Comments No Sex and Gender Information Value Date Recorded Sex Assigned at Not on file Legal Sex Female 11:05 PM CDT Gender Identity Not on file Sexual Orientation Not on file Plan of Treatment Health Maintenance Due Date Last Done Comments Hepatitis C Virus (HCV) Screening 1962 TdaP Immunization 1962 Pap Smear 1983 Cervical Cancer Screening (CCS) 1992 HPV/Cotest 1992 Cologuard 2012 Immunochemical Fecal Occult Blood 2012 Pneumococcal Immunization (50+ years) (1 of 1 - PCV) 2012 Zoster Immunization (1 of 2) 2012 Influenza Immunization (#1) 2024 SARS-COV-2 Immunization ( season) 2024 06/11/2021, 11/06/2020 Mammogram 02/26/2025 02/27/2024, 08/02/2023, 01/28/2022, Additional history exists Colonoscopy 06/13/2033 06/13/2023 Colorectal Cancer Screening 06/13/2033 Respiratory Syncytial Virus (RSV) Immunization (Adult) (1 - 1-dose 75+ series) 2037 06/13/2023 Hepatitis B Immunization Aged Out No longer eligible based on patient's age to complete this topic Meningococcal Immunization (ACWY) Aged Out No longer eligible based on patient's age to complete this topic Pneumococcal Immunization Combined Aged Out No longer eligible based on patient's age to complete this topic Rotavirus Immunization Aged Out No lo nger eligible based on patient's age to complete this topic Procedures Procedure Name Priority Date/Time Associated Diagnosis Comments NOEMI SCREENING BILATERAL DIGITAL W CAD W CYNDY Routine 02/27/2024 9:13 AM CDT Encounter for screening mammogram for breast cancer from Last 3 Months or Most Recently Relevant to Health Maintenance Results * NOEMI SCREENING BILATERAL DIGITAL W CAD W CYNDY (02/27/2024 9:13 AM CDT) Anatomical Region Laterality Modality breast Bilateral Mammography 02/27/2024 9:14 AM CDT Narrative 02/28/2024 2:49 PM CDT - NOEMI SCREENING BILATERAL DIGITAL W CAD W CYNDY BILATERAL DIGITAL SCREENING MAMMOGRAM 3D/2D WITH CAD WITH MEDIOLATERAL OBLIQUE CRANIOCAUDAL: 02/27/2024 The study was acquired using digital technology and interpreted from soft copy. Current study was also evaluated with ICAD version 7.2. 2D digital mammographic views, as well as 3D digital tomosynthesis were performed in the CC and MLO projections. CLINICAL: Routine screening. Patient has no complaints. Personal history of lymphoma. No family history of breast cancer. COMPARISONS: Comparison is made to exams dated: 03/05/2023, 01/28/2022, and 01/15/2021 [facility]. BREAST TISSUE:The tissue of both breasts is heterogeneously dense. This may lower the sensitivity of mammography. FINDINGS: No significant masses, calcifications, or other findings are seen in either breast. There has been no significant interval change. IMPRESSION: BI-RAD 1 NEGATIVE There is no mammographic evidence of malignancy. A 1 year screening mammogram is recommended. A letter will be sent to the patient with these results. The patient will be entered into a reminder system with a target due date of 1 year for her next screening exam. Electronically signed by: Carito gibson/penrad:02/28/2024 14:03:58 Masonry Instructor(s): RT Jan(R)(M), [facility] letter sent: Normal Exam Reading location: STEEL BI-RADS: 1 Negative Procedure Note Carito Zhou MD - 02/28/2024 - NOEMI SCREENING BILATERAL DIGITAL W CAD W CYNDY BILATERAL DIGITAL SCREENING MAMMOGRAM 3D/2D WITH CAD WITH MEDIOLATERAL OBLIQUE CRANIOCAUDAL: 02/27/2024 The study was acquired using digital technology and interpreted from soft copy. Current study was also evaluated with [employer]D version 7.2. 2D digital mammographic views, as well as 3D digital tomosynthesis were performed in the CC and MLO projections. CLINICAL: Routine screening. Patient has no complaints. Personal history of lymphoma. No family history of breast cancer. COMPARISONS: Comparison is made to exams dated: 03/05/2023, 01/28/2022, and 01/15/2021 [facility]. BREAST TISSUE:The tissue of both breasts is heterogeneously dense. This may lower the sensitivity of mammography. FINDINGS: No significant masses, calcifications, or other findings are seen in either breast. There has been no significant interval change. IMPRESSION: BI-RAD 1 NEGATIVE There is no mammographic evidence of malignancy. A 1 year screening mammogram is recommended. A letter will be sent to the patient with these results. The patient will be entered into a reminder system with a target due date of 1 year for her next screening exam. Electronically signed by: Carito gibson/penrad:02/28/2024 14:03:58 Masonry Instructor(s): RT Jan(R)(M), [facility] letter sent: Normal Exam Reading location: STEEL BI-RADS: 1 Negative us Bo Meneses MD IMG MAMMO ORDERABLES Brandee l Result from Last 3 Months or Most Recently Relevant to Health [place] [address] [place] [id number] MEDICAID [place] Care Teams Director Of Health Care Marketing Relationship Specialty Start Date End Date Bo Meneses MD [address] [place] [address] PCP - General Internal Medicine 10/29/17
--- NOTE | 2024-08-30 10:32 | ED_ITS ---
HPI - General Adult General Chief complaint: Upper Respiratory Infection Stated complaint: sinus inf Source: patient Mode of arrival: ambulatory Limitations: no limitations History of Present Illness HPI narrative: Patient presents for evaluation of sinus symptoms for last week. Symptoms include sinus congestion, thick green drainage from the nares, and sore throat. She denies any fever, chills, nausea, vomiting,, or shortness of breath. No recent sick contacts to knowledge. She has been taking mucinex DM for her symptoms. She does not smoke. Related Data Home Medications ?Medication ?Instructions ?Recorded ?Confirmed ?Last Taken ?Type No Home Medications 08/30/24 Unknown History Allergies Allergy/AdvReac Type Severity Reaction Status Date / Time Penicillins Allergy Mild Rash Verified 08/30/24 10:15 Review of Systems Review of Systems: CONSTITUTIONAL: Denies fever, chills, or sweats. EYES: Denies visual changes, redness, or discharge. ENT: Reports sinus congestion, thick green nasal drainage and sore throat CARDIOVASCULAR: Denies chest pain, palpitations, or edema. RESPIRATORY: Denies cough or dyspnea. GASTROINTESTINAL: Denies abdominal pain, nausea, vomiting, or diarrhea. GENITOURINARY: Denies dysuria or hematuria. SKIN: Denies rash or itching. MUSCULOSKELETAL: Denies back pain, joint pain, or myalgia. NEUROLOGIC: Denies headache, numbness, dizziness, or weakness. PSYCHIATRIC: Denies anxiety or depression. [facility] Past Medical History Medical History GERD (gastroesophageal reflux disease) Abnormal CT scan, small bowel Follicular lymphoma No significant medical problems Surgical History Surgical History No history of previous surgery Family History Family History Father Asthma Cancer Hypertension Heart disease Mother Hypertension Sibling Hypertension Social History Social History Smoking status: Never smoker Second hand tobacco smoke exposure: No Alcohol intake: current Alcohol use details: social Substance use: never Substance use type: does not use Lack of Transportation: No Lack of Food: Never True Current Housing: I Have Housing Concerned About Future Housing: No Difficulty Paying Gas/Electric Bills: No Difficulty Paying for Meds: No Currently Unemployed: No Education: High School Diploma/GED Difficulty w/ Childcare or Family Care: No Living arrangements: with family Gender identity (if verbalized by the patient): Female Spiritual care concerns: No Exam Narrative: GENERAL: Well-appearing, well-nourished, and in no acute distress. HEAD: Normocephalic, atraumatic. EYES: PERRLA and EOMI. ENT: Nares clear, no rhinorrhea or epistaxis. Mucous membranes moist. Oropharynx without tonsillar hypertrophy exudate or other lesions. Bilateral TMs pearly talley nonbulging NECK: Supple. No adenopathy or masses. No carotid bruits or JVD CHEST: Clear to auscultation. No respiratory distress. No wheezes rales or rhonchi HEART: Rate 165. No murmur heard. Normal peripheral pulses. ABDOMEN: Soft, nontender, nondistended, normal active bowel sounds. EXTREMITIES: Normal range of motion. No edema. SKIN: Warm, dry, no rash. NEURO: No focal deficits. Alert and oriented x3. PSYCH: Normal mood and affect. Course Course Emergency Course: This is a 64 yr old female who presented for evaluation of sinus symptoms. On my initial evaluation her heart rate was in the 160's. She denies any chest pain or shortness of breath. EKG was obtained in rates remained in the 150s to 170s. I recommended she be transferred to the ER for further evaluation. We tried vagal maneuvers without rate improvement. [facility] is her facility of choice. I contacted the ER at [facility] and spoke with RN, Olivia. She indicates that Dr Alcantara will accept pt to the Dept there.Pt was transferred via EMS Level of Care: Express Care Visit Vital Signs Vital signs: Vital Signs Temperature 36.7 C 08/30/24 10:06 Pulse Rate 155 H 08/30/24 10:06 Respiratory Rate 08/30/24 10:06 Blood Pressure 165/95 H 08/30/24 10:06 Pulse Oximetry 98 08/30/24 10:06 Oxygen Delivery Room Air 08/30/24 10:06 Temperature 36.7 C 08/30/24 10:06 Pulse Rate 155 H 08/30/24 10:06 Respiratory Rate 20 08/30/24 10:06 Blood Pressure 165/95 H 08/30/24 10:06 Pulse Oximetry 98 08/30/24 10:06 Oxygen Delivery Room Air 08/30/24 10:06 Medical Decision Making Vital Signs Vital Signs: Vital Signs Temperature 36.7 C 08/30/24 10:06 Pulse Rate 155 H 08/30/24 10:06 Respiratory Rate 20 08/30/24 10:06 Blood Pressure 165/95 H 08/30/24 10:06 Pulse Oximetry 98 08/30/24 10:06 Oxygen Delivery Room Air 08/30/24 10:06 Temperature 36.7 C 08/30/24 10:06 Pulse Rate 155 H 08/30/24 10:06 Respiratory Rate 20 08/30/24 10:06 Blood Pressure 165/95 H 08/30/24 10:06 Pulse Oximetry 98 08/30/24 10:06 Oxygen Delivery Room Air 08/30/24 10:06 ECG Data EKG #1: ECG completion date: 08/30/24 ECG completion time: 10:34 Interpretation: Sinus tachycardia, rate 157, no st segment changes Discharge Plan Discharge Clinical Impression: Tachycardia, Sinusitis Patient Disposition: Acute Care Hospital Condition: Stable Patient Language: [place] Prescriptions: No Action No Home Medications Follow-up/Referrals: Harms,Bo Mcclain M.D. [Primary Care Provider] - Time of Disposition: 11:13
--- NOTE | 2024-08-30 10:51 | ECG_ITS ---
Test Date: 2024-08-30 10:34:45 Measurements Intervals [place] Rate: 157 P: 55 NV: 121 QRS: 38 QRSD: 65 T: 53 QT: 258 QTc: 417 Interpretive Statements SINUS TACHYCARDIA BASELINE ARTIFACT- II, III, AVR, AVL, AVF ABNORMAL ECG No previous ECG available for comparison Electronically Signed On 08-30-2024 12:04:02 INSURANCE MARKETING SPECIALIST by Dillan Kraft D.O.
--- NOTE | 2024-08-30 10:57 | PC.NURSE ---
1008 Noted to have increased heart rate. No pain or SOB. Rate regular. 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 VS stable.
--- NOTE | 2024-08-30 11:00 | PC.NURSE ---
1025. No change. Heart rate remains elevated. No pain EKG to be done. Placed on monitor. Sinus tach. rate 170
--- NOTE | 2024-08-30 11:05 | PC.NURSE ---
1045 Will send to hospital per EMS. EMS called.
[2024-08-30 11:12] VITALS: BP 170/101
== END 2024-08-30 10:56 | disposition short-term general hospital (02) ==
PROVIDERS: Emergency Provider Nurse Practitioner; PCP Family Medicine
DX: R00.0 Tachycardia, unspecified (principal); J32.9 Chronic sinusitis, unspecified; K21.9 Gastro-esophageal reflux disease without esophagitis; Z85.72 Personal history of non-Hodgkin lymphomas
CPT/HCPCS: 93005; 99215; G0463